=== PATIENT | female | born 1955 | race Caucasian/White ===

== ENCOUNTER 2025-02-09 09:29 | Outpatient (CLI) | payer MEDICARE, OTHER, SELFPAY ==
--- NOTE | 2025-02-09 10:59 | ECG_ITS ---
Test Date: 2025-02-09 11:19:46 Measurements Intervals [place] Rate: 60 P: -2 OH: 190 QRS: 3 QRSD: 89 T: 38 QT: 397 QTc: 400 Interpretive Statements SINUS RHYTHM MODERATE ST DEPRESSION [0.05+ mV ST DEPRESSION] WARNING: DATA QUALITY MAY AFFECT INTERPRETATION No previous ECG available for comparison Electronically Signed On 02-09-2025 11:28:34 CDT by Claude Clayton M.D.
[2025-02-09 12:29] LABS: Hematocrit 36.5 % (37.0-47.0); Hemoglobin 12.6 g/dL (12.0-15.0); Immature Granulocyte Percent A 0.3 % (0-0.5); Lymphocytes Absolute Auto 2.00 K/mm3 (0.9-3.2); Mean Corpuscular HGB Conc 34.5 g/dl (32-36); Mean Corpuscular Hemoglobin 30.1 pg (26-34); Mean Corpuscular Volume 87.1 fl (80-100); Nucleated Red Blood Cells Absolute Auto 0.000 K/mm3 (0.0-0.012); Nucleated Red Blood Cells Perc 0.0 % (0.0-0.2); Platelet Count Result 401 k/mm3 (150-375); Red Blood Count 4.19 M/mm3 (4.2-5.4); White Blood Count 6.4 K/mm3 (4.5-10.0)
[2025-02-09 12:46] LABS: Albumin Level 4.3 g/dL (3.5-5.1)
[2025-02-09 12:49] LABS: Anion Gap 7 mmol/L (4-12); Blood Urea Nitrogen 10 mg/dL (7-17); Calcium 9.2 mg/dL (8.4-10.2); Carbon Dioxide 25 mmol/L (22-30); Chloride 92 mmol/L (98-107); Estimated Glomerular Filt Rate > 60; Glucose 93 mg/dL (65-110); Hemoglobin A1C 5.9 % (<5.7); Potassium 4.1 mmol/L (3.4-5.0); Sodium 124 mmol/L (137-145)
[2025-02-09 13:42] LABS: MRSA (PCR) NOT DETECTED (NOT DETECTE)
== END 2025-02-09 09:30 | disposition home or self-care (01) ==
LOC: ANHSURGERY 09:37
PROVIDERS: Anesthesiology; Visit Provider Orthopaedic Surgery
DX: Z01.818 Encounter for other preprocedural examination (principal); M16.12 Unilateral primary osteoarthritis, left hip; Z51.81 Encounter for therapeutic drug level monitoring
CPT/HCPCS: 36415; 80048; 80307; 82040; 83036; 85025; 86850; 86900; 86901; 87641; 93005

== ENCOUNTER 2025-04-11 09:47 | Outpatient (CLI) | payer MEDICARE, OTHER, SELFPAY ==
--- OUTSIDE RECORDS SUMMARY | 2025-04-11 10:17 | XMS_ITS | Clinical Summary ---
Author Organization [facility] Address [address] [place] [id number] Care Team Providers Care Physical Director Name Role Phone Unavailable Primary Care Provider Unavailabl e Social History Tobacco Use Types Packs/Day Years Used Date Smoking Tobacco: Never Assessed Comments Unknown Sex and Gender Information Value Date Recorded Sex Assigned at Not on file Legal Sex Female 7:47 PM CDT Gender Identity Not on file Sexual Orientation Not on file Plan of Treatment Health Maintenance Due Date Last Done Comments Colorectal Cancer Screening Colonoscopy (10 Years) 1953 Hepatitis C 11/23/1971 DTaP, Tdap and Td Vaccines ( 1 - Tdap) 1972 Mammogram Screening 1993 Pneumococcal Vaccine: 50+ Ye ars (1 of 1 - PCV) 11/23/2003 Zoster Vaccines (1 of 2) 11/23/2003 Dexa Scan (General) 2018 COVID-19 Vaccine ( - 2024-2 6 season) 2025 Influenza Adult (#1) 2025 RSV Immunization or 60+ Years (1 - 1-dose 75+ series) 2028 Hepatitis A Vaccines Aged Out No long er eligible based on patient's age to complete this topic Meningococcal B Vaccine Aged Out No l onger eligible based on patient's age to complete this topic Meningococcal Vaccine Aged Out No violeta anahi eligible based on patient's age to complete this topic RSV Immunizations Under 20 Months Aged Out No longer eligible based on patient's age to complete this topic
[2025-04-11 10:29] LABS: Hematocrit 40.3 % (37.0-47.0); Hemoglobin 13.6 g/dL (12.0-15.0); Immature Granulocyte Percent A 0.0 % (0-0.5); Lymphocytes Absolute Auto 2.52 K/mm3 (0.9-3.2); Mean Corpuscular HGB Conc 33.7 g/dl (32-36); Mean Corpuscular Hemoglobin 30.3 pg (26-34); Mean Corpuscular Volume 89.8 fl (80-100); Nucleated Red Blood Cells Absolute Auto 0.000 K/mm3 (0.0-0.012); Nucleated Red Blood Cells Perc 0.0 % (0.0-0.2); Platelet Count Result 354 k/mm3 (150-375); Red Blood Count 4.49 M/mm3 (4.2-5.4); White Blood Count 6.6 K/mm3 (4.5-10.0)
[2025-04-11 10:38] LABS: Albumin Level 4.5 g/dL (3.5-5.1)
[2025-04-11 11:49] LABS: MRSA (PCR) NOT DETECTED (NOT DETECTE)
== END 2025-04-11 09:48 | disposition home or self-care (01) ==
LOC: ANHSURGERY 09:49
PROVIDERS: Visit Provider Orthopaedic Surgery
DX: M16.12 Unilateral primary osteoarthritis, left hip (principal); Z01.818 Encounter for other preprocedural examination
CPT/HCPCS: 80307; 82040; 85025; 86850; 86900; 86901; 87641

== ENCOUNTER 2025-04-24 02:04 | Day surgery (SDC) | payer MEDICARE, OTHER, SELFPAY ==
[2025-02-09 10:12] VITALS: BP 162/65; PULSE 58; RESP 16; TEMP 36.2; O2SAT 99; BMI 34.7
--- NOTE | 2025-02-09 10:32 | PC.NURSE ---
Report to the Outpatient Waiting Room, entrance under the green pavilion located off [facility], at time __6:00AM___ on date __02/20/25___. Planned Procedure Time: ___7:30AM___.? Time changes happen often and if your time is changed the preop area will call you the afternoon before. - You and your visitor will be asked to self-screen and do not enter if you have any COVID symptoms. Please call surgeon if you need to reschedule. - A mask is optional within the hospital at this time. Patients may have clear liquids (water, carbonated beverages, clear teas, apple juice) until 3 hours prior to surgery (4:30AM) with a maximum of 20 ounces. - No food from midnight until time of surgery and no smoking, or chewing tobacco (or any form of nicotine). No chewing gum, candy or mints. Take only the following medications with a SIP of water on the morning of surgery: LEVOTHYROXINE DO NOT STOP ANY OF YOUR OTHER PRESCRIPTION MEDICATIONS PRIOR TO SURGERY EXCEPT THE FOLLOWING Hold all vitamins and supplements for 3 days per anesthesiologist.- LAST DOSE 02/16/25 Medications to discontinue per physician ____HOLD IBUPROFEN & ASPIRIN 7 DAYS PRE-OP PER DR GONZALES____ Date to take last dose 02/12/25 Please no make-up, nail luxembourger, hairspray, perfume, deodorant, or body powder the day of surgery.? No jewelry (including any body piercings) or valuables the day of surgery, leave them at home.? Please take a shower or bath the night before, or the morning of, surgery with an antibacterial soap.? Wear comfortable, loose fitting clothing.? - Jewelry must be removed prior to entering the operating room.? Rings and piercings that are not removed may be cut off. - The hospital will not accept responsibility for valuables.? - Please leave all valuables, including medications, at home the day of surgery. If you are going home after surgery, a licensed mobile lounge driver must drive you home.? - NO public transportation without another adult if you receive anesthesia. - We recommend that an adult stay with you for 24 hours following discharge. - We also recommend that you do not drive, make important decision, drink alcoholic beverages, or take any drugs that were not prescribed by your health care provider for at least 24 hours after your discharge time. Follow any additional instructions given to you from your surgeon. Telephone instructions given to ____PATIENT & HUSBAND and asked if any additional questions and then verbalized understanding. Patient advised to call surgeon office or pre surgery nurse liaison [phone] if any additional questions.
--- NOTE | 2025-02-16 07:08 | PM.IMHP ---
H&P: HPI History of Present Illness Date/Time: 02/16/25 07:08 Chief Complaint: Patient has hip pain left. She has vmhz-hh-[id number] arthritis of the left hip. She has erosive wear of the bone. She has failed conservative treatment. She would like to consider hip replacement surgery. She has a total hip arthroplasty on the right. Review of Systems Musculoskeletal: Musculoskeletal: Reports arthralgias, Reports joint swelling and Reports stiffness Neurologic: Reports abnormal gait [facility] Past Medical History Medical History Retina disorder, right Hyperlipemia Hypertension Surgical History Surgical History History of hip surgery Family History Family History Father Diabetes mellitus Mother Goiter Diabetes mellitus Sibling No problems noted. Social History Social History (Updated 01/03/25 @ 10:02 by Gardenia Shanks [facility]) Smoking status: Never smoker Second hand tobacco smoke exposure: Yes Alcohol intake: current Substance use: never Substance use type: does not use Do You Feel Safe in your Home?: No Lack of Transportation: No Lack of Food: Never True Current Housing: I Have Housing Concerned About Future Housing: No Difficulty Paying Gas/Electric Bills: No Difficulty Paying for Meds: No Currently Unemployed: No Education: Associate Degree Difficulty w/ Childcare or Family Care: No Living arrangements: with family Additional living arrangements comments: [facility] Occupation/Education: 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 Gender identity (if verbalized by the patient): Female Spiritual care concerns: No Meds Home Medications and Allergies Home Medications ?Medication ?Instructions ?Recorded ?Confirmed ?Type atorvastatin 20 mg tablet 20 mg PO DAILY 12/31/23 02/09/25 History hydrochlorothiazide 12.5 mg capsule 12.5 mg PO DAILY 12/31/23 02/09/25 History levothyroxine 50 mcg capsule 50 mcg PO DAILY 12/31/23 02/09/25 History losartan 50 mg tablet 50 mg PO DAILY 12/31/23 02/09/25 History aspirin 81 mg tablet,delayed 81 mg PO DAILY 02/09/25 02/09/25 History release (Adult Low Dose Aspirin) biotin 5,000 mcg disintegrating 5,000 mcg PO DAILY 02/09/25 02/09/25 History tablet calcium 600 mg (as 1 tablet PO DAILY 02/09/25 02/09/25 History carbonate)-vitamin D3 5 mcg (200 unit) tablet coQ10 (ubiquinol) 200 mg capsule 200 mg PO DAILY 02/09/25 02/09/25 History cranberry 500 mg capsule 500 mg PO DAILY 02/09/25 02/09/25 History elderberry fruit 200 mg capsule 100 mg PO BID 02/09/25 02/09/25 History fish,flax,primrose,borag 1 cap PO DAILY 02/09/25 02/09/25 History oils-om3,6,9 no5 400 mg-400 mg-200 mg capsule flaxseed 1,000 mg capsule 1,000 mg PO DAILY 02/09/25 02/09/25 History ibuprofen 200 mg tablet 600 mg PO Q6-8H PRN pain 02/09/25 02/09/25 History multivitamin (Daily Multi-Vitamin 1 tablet PO DAILY 02/09/25 02/09/25 History tablet) mupirocin 2 % topical ointment 1 applic topical TID 02/09/25 02/09/25 History vit C-vit G-ggssmk-qwxlmgsf-omega 1 cap PO DAILY 02/09/25 02/09/25 History 3 100 mg-15 unit-2 mg-100 mg capsule Allergies Allergy/AdvReac Type Severity Reaction Status Date / Time sodium Allergy RASH, Verified 02/09/25 09:50 DIZZINESS sulfamethoxazole Allergy RASH Verified 02/09/25 09:56 Exam Narrative: On exam she has a pain with any manipulation of her left hip. She has internal rotation 0 external rotation about 20 she has a positive Stinchfield test and grinding with any motion. Neurologically she appears to be intact. Eyes: General: appearance normal, both eyes and all related structures Neck: Neck: supple Resp: Effort & Inspection: normal respiratory effort Cardio: Rate: regular rate Rhythm: regular rhythm Assessment and Plan Assessment and plan (1) Osteoarthritis of left hip: Code(s): M16.12 - Unilateral primary osteoarthritis, left hip Status: Acute Assessment and Plan: Patient has arthritis left hip. She has failed conservative treatment like to consider hip replacement surgery. She has a total hip arthroplasty on the right and has done well from that. I have discussed the risks, benefits, limitations, and alternatives with the patient in detail. Will proceed per her request. (2) History of right hip replacement: Code(s): Z96.641 - Presence of right artificial hip joint Status: Acute
[2025-04-10 11:10] VITALS: BMI 34.7
--- NOTE | 2025-04-10 11:49 | PC.NURSE ---
[facility] has started construction of its new state of the art ER which will open Spring 2026. With this, we anticipate parking may be a challenge for some our surgical patients and families. Parking spaces are limited but are available for all Surgical, obstetrics, and ER patients sharing this lot. If you arrive and find you are having a hard time finding a parking space, please note that we understand the challenges, please drive around the hospital and park near Hospital Entrance 1. When you enter this entrance, you can ask a volunteer to direct or take you back to the surgical waiting area to check in. We appreciate everyone?s understanding of these expected challenges while we build for your future. Report to the Outpatient Waiting Room, entrance under the green pavilion located off [address], at time __6:00AM____ on date __04/24/25___. Planned Procedure Time: ___7:30AM____.? Time changes happen often and if your time is changed the preop area will call you the afternoon before. - You and your visitor will be asked to self-screen and do not enter if you have any COVID symptoms. Please call surgeon if you need to reschedule. - A mask is optional within the hospital at this time. Patients may have clear liquids (water, carbonated beverages, clear teas, apple juice) until 3 hours prior to surgery(4:30AM) with a maximum of 20 ounces. - No food from midnight until time of surgery and no smoking, or chewing tobacco (or any form of nicotine). No chewing gum, candy or mints. Take only the following medications with a SIP of water on the morning of surgery: ___LEVOTHYROXINE DO NOT STOP ANY OF YOUR OTHER PRESCRIPTION MEDICATIONS PRIOR TO SURGERY EXCEPT THE FOLLOWING Hold all vitamins and supplements for 3 days per anesthesiologist. LAST DOSE 04/20/25 Medications to discontinue per physician ____HOLD IBUPROFEN (ALL NSAIDS) AND ASPIRIN 7 DAYS PRE-OP PER DR GONZALES__ Date to take last dose 04/16/25 Please no make-up, nail slovak, hairspray, perfume, deodorant, or body powder the day of surgery.? No jewelry (including any body piercings) or valuables the day of surgery, leave them at home.? Please take a shower or bath the night before, or the morning of, surgery with an antibacterial soap.? Wear comfortable, loose fitting clothing.? - Jewelry must be removed prior to entering the operating room.? Rings and piercings that are not removed may be cut off. - The hospital will not accept responsibility for valuables.? - Please leave all valuables, including medications, at home the day of surgery. If you are going home after surgery, a licensed tower truck driver must drive you home.? - NO public transportation without another adult if you receive anesthesia. - We recommend that an adult stay with you for 24 hours following discharge. - We also recommend that you do not drive, make important decision, drink alcoholic beverages, or take any drugs that were not prescribed by your health care provider for at least 24 hours after your discharge time. Follow any additional instructions given to you from your surgeon. Telephone instructions given to ____PATIENT and asked if any additional questions and then verbalized understanding. Patient advised to call surgeon office or pre surgery nurse liaison [phone] if any additional questions.
--- NOTE | 2025-04-20 06:59 | PM.IMHP ---
H&P: HPI History of Present Illness Date/Time: 04/20/25 06:59 Chief Complaint: Patient has hip pain left. She has qesj-in-egsu arthritis with erosive change. She has had a previous total hip arthroplasty on the right is done well from that. She would like to consider a hip replacement on the left as well. Review of Systems Musculoskeletal: Musculoskeletal: Reports arthralgias, Reports joint swelling and Reports stiffness Neurologic: Reports abnormal gait [facility] Past Medical History Medical History Retina disorder, right Hyperlipemia Hypertension Surgical History Surgical History History of hip surgery Family History Family History Father Diabetes mellitus Mother Goiter Diabetes mellitus Sibling No problems noted. Social History Social History (Updated 01/03/25 @ 10:02 by Gardenia Shanks [employer]) Smoking status: Never smoker Second hand tobacco smoke exposure: Yes Alcohol intake: current Substance use: never Substance use type: does not use Do You Feel Safe in your Home?: No Lack of Transportation: No Lack of Food: Never True Current Housing: I Have Housing Concerned About Future Housing: No Difficulty Paying Gas/Electric Bills: No Difficulty Paying for Meds: No Currently Unemployed: No Education: Associate Degree Difficulty w/ Childcare or Family Care: No Living arrangements: with family Additional living arrangements comments: [facility] Occupation/Education: retired 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 Gender identity (if verbalized by the patient): Female Spiritual care concerns: No Meds Home Medications and Allergies Home Medications ?Medication ?Instructions ?Recorded ?Confirmed ?Type atorvastatin 20 mg tablet 20 mg PO DAILY 12/31/23 02/09/25 History levothyroxine 50 mcg capsule 50 mcg PO DAILY 12/31/23 02/09/25 History aspirin 81 mg tablet,delayed 81 mg PO DAILY 02/09/25 02/09/25 History release (Adult Low Dose Aspirin) biotin 5,000 mcg disintegrating 5,000 mcg PO DAILY 02/09/25 02/09/25 History tablet calcium 600 mg (as 1 tablet PO DAILY 02/09/25 02/09/25 History carbonate)-vitamin D3 5 mcg (200 unit) tablet coQ10 (ubiquinol) 200 mg capsule 200 mg PO DAILY 02/09/25 02/09/25 History cranberry 500 mg capsule 500 mg PO DAILY 02/09/25 02/09/25 History elderberry fruit 200 mg capsule 400 mg PO DAILY 02/09/25 04/10/25 History fish,flax,primrose,borag 1 cap PO DAILY 02/09/25 02/09/25 History oils-om3,6,9 no5 400 mg-400 mg-200 mg capsule flaxseed 1,000 mg capsule 1,000 mg PO DAILY 02/09/25 02/09/25 History ibuprofen 200 mg tablet 600 mg PO Q6-8H PRN pain 02/09/25 02/09/25 History multivitamin (Daily Multi-Vitamin 1 tablet PO DAILY 02/09/25 02/09/25 History tablet) vit C-vit C-fihhfv-sxuqavhz-omega 1 cap PO DAILY 02/09/25 02/09/25 History 3 100 mg-15 unit-2 mg-100 mg capsule losartan 100 mg tablet 100 mg PO QAM 04/10/25 04/10/25 History Allergies Allergy/AdvReac Type Severity Reaction Status Date / Time sodium Allergy RASH, Verified 04/10/25 11:05 DIZZINESS sulfamethoxazole AdvReac nausea, Verified 04/10/25 11:06 loss of appetite, upset stomach Exam Narrative: On exam she has shortening of her left leg. His internal rotation is 0 external rotation about 30. She has grinding crepitus is audible. She has a positive Stinchfield test. She has pain with any manipulation. Eyes: General: appearance normal, both eyes and all related structures Neck: Neck: supple Resp: Effort & Inspection: normal respiratory effort Cardio: Rate: regular rate Rhythm: regular rhythm Assessment and Plan Assessment and plan (1) Osteoarthritis of left hip: Code(s): M16.12 - Unilateral primary osteoarthritis, left hip Status: Acute Assessment and Plan: Patient has ktof-wt-piyq arthritis of the left hip. She has failed conservative treatment like to proceed proceed with total hip arthroplasty. I discussed the risks, benefits, limitations, and alternatives with the patient in detail. She understands and agrees would like to proceed. Will proceed per her request. Of note is the fact she has a hip replacement on the right and is doing well from that.
[2025-04-24] VITALS (15 sets, daily range): BP systolic 110–215; BP diastolic 49–65; PULSE 72–98; RESP 12–20; TEMP 35.9–36.6; O2SAT 93–100
--- NOTE | ~2025-04-24 | XR_ITS ---
EXAMINATION: XR surgery orthopedic DATE: 04/24/2025 09:49 INDICATION: Intraoperative evaluation during left total hip arthroplasty TECHNIQUE: Frontal view of the left hip was obtained. COMPARISON: None. FINDINGS: Intraoperative image during a left total hip arthroplasty demonstrate placement of an acetabular component which appears in near anatomic alignment on the single image provided. A femoral broach is also been placed on the initial image. This is subsequently replaced with a noncemented femoral component which also appears in near-anatomic alignment with the epicenter of the femoral head centered over the acetabular component.. Portions of the pelvis are obscured by overlying surgical instrumentation. No fractures in the visualized bones. Partially visualized contralateral right total hip arthroplasty. IMPRESSION: 1. Expected appearance during left total hip arthroplasty. Reviewed, dictated and finalized at location A. CIL TYPIST
--- OUTSIDE RECORDS SUMMARY | 2025-04-24 02:07 | XMS_ITS | Continuity of Care Document ---
Author Organization [place] - [facility], [facility] [place] Address [address] [place] [address] Care Team Providers Care Branding Specialist Name Role Phone JOHNNIE VEGA Primary Care Provider [phone] JOHNNIE VEGA Referring Provider ANTONI OCASIO Commissary Clerk Unavailable ANTONI OCASIO Commissary Clerk Unavailable ANTONI OCASIO Commissary Clerk Unavailable Assessment No assessment recorded. Plan of Treatment Reminders Order Date Submit Date Provider Last Modified By Organization Details Last Modified Time Details Appointments Physical/ Annual Wellness 30 2025 10:00A M MANDO Hutchins Not available Not available Not available Lab None recorded. Referral None recorded. Procedures None recorded. Surgeries None recorded. Imaging None recorded. Medication Orders None recorded. Patient TargetsNo targets recorded. Patient InstructionsNo instructions recorded. Reason for Referral None Reported. Results Created Date Observation Date Name Description Value Unit Range Abnormal Flag Note LastModifiedBy Organization Detail LastModifiedTime Result Notes None recorded. Problems Name Problem SNOMED Code Status Onset Date Resolution Date Notes Provider Name and Address Organization Details Recorded Time Disorder of thyroid gland 42772802 Active Not Available [employer] 3 12:02:36 Hypertensi ve disorder 09018825 Active Not Available [facility] 3 12:02:36 Morbid obesity 480525690 Active 2017 Not Available [facility] 3 12:02:36 Hypothyroi dism 25410183 Active 2017 Not Available [facility] 3 12:02:36 Essential hypertensi on 47362981 Active 2017 Not Available [facility] 3 12:02:37 History of total hip arthroplas ty 939173356577 Active 2019 Not Available [facility] 3 12:02:37 Chronic hyponatrem ia 18374345 Active 2019 Not Available [facility] 3 12:02:37 Osteoarthr itis of left hip joint 0966395819299 08 Active 2021 Not Available [facility] 3 12:02:36 History of total replacemen t of right hip joint 6135913505575 00 Active 2021 Not Available [facility] 3 12:02:37 Hyperlipid emia 38291576 Active 2022 Not Available [facility] 3 12:02:37 Obesity 297832228 Active 2022 Not Available [facility] 3 12:02:36 Vitamin D deficiency 43263713 Active 2023 JAZIEL Rodriguez [address], [address], [place], [address] , [employer] 4 11:35:59 Open wound of lesser toe of right foot 9948015967384 9104 Active 2024 MANDO Hutchins [address], [address], [place], [address] , [employer] [facility] 5 11:36:50 Prediabete s 458830574 Active 2024 MANDO Hutchins [address], [address], [place], [address] , [employer] [facility] 5 11:41:03 Ulcer of toe of right foot Active 2024 Giorgio Pizano DPM [address], [address], [place], [address] , [employer] [facility] 5 09:49:22 Hammer toe 638447942 Active 2024 Giorgio Pizano DPM [address], [address], [place], [address] , [facility] [employer] [facility] [employer] 5 09:49:29 [facility] 17900844 Active 2024 MANDO Hutchins [address] [employer] [address], [address], [place], [address] , [facility] [employer] [facility] [employer] [facility] 14:19:43 Problem Notes None recorded. Procedures Surgical History Date Name Laterality Status Provider Name and Address Organization Details Recorded Time 5 Wound Care-Podiatry completed Delia Mast RN [employer] [facility] [employer] 02/08/2025 15:58:42 5 Wound Care-Podiatry completed Delia Mast RN [employer] [facility] 02/01/2025 15:11:14 5 Wound Care-Podiatry completed Giorgio Pizano DPM [address], [place], [address], [facility] [employer] [facility] 01/26/2025 09:48:39 4 Medicare Wellness CPT Code, subsequent completed August ROBBIE Marley [employer] [facility] 01/21/2024 10:47:15 3 Medicare Wellness CPT Code, subsequent completed SPRING Ramirez [address], [address], [place], [address], [facility] [employer] [facility] 12/09/2022 09:56:46 3 Medicare Wellness CPT Code, Initial completed Eula Ann CMA [employer] [facility] 12/09/2022 09:23:14 0 Hip surgery completed Not Available [facility] 07/31/19 09:25:53 Imaging Results None recorded. Procedure Notes None recorded. Medical Equipment None Reported. Allergies Allergen ID Allergen Name Allergen Category Reaction Reaction Severity Criticality Documentation Date Start Date Code Code System Note Provider Name and Address Organization Details Recorded Time 16892 sodium chloride medicatio n Not available Not available low 01/25/2025 9863 RxNorm MANDO Hutchins [address], [address], [place], [address], [facility] 5 15:16:05 11916 Bactrim medicatio n hives Not available low 02/01/2025 44495 9 RxNorm Johnnie Gutierrezopal, HVAC SERVICE TECH [address], [address], [place], [address], [facility] 5 09:15:00 Medications Name Sig Start Date Stop Date Status Note LastModified by Organization Details LastModified Time losartan 50 mg tablet TAKE 1 TABLET BY MOUTH EVERY DAY active Not Available Not Available No t Available amoxicilli n 500 mg capsule TAKE 4 CAPSULES BY MOUTH 1 HOUR PRIOR TO PROCEDURE 10/21 completed Not Available Not Available Not Available atorvastat in 20 mg tablet TAKE 1 TABLET BY MOUTH EVERY DAY 2024 active Not Available Not Available Not Avai lable benzonatat e 200 mg capsule Take 1 capsule 3 times a day by oral route for 10 days. active Not Available Not Available No t Available hydrochlor othiazide 50 mg tablet TAKE 1 TABLET BY MOUTH EVERY DAY 01/23 completed Not Available Not Available Not Available sodium chloride 1 gram tablet TAKE 1 TABLET BY MOUTH DAILY FOR 10 DAYS 12/31 completed Not Available Not Available Not Available sulfametho xazole 800 mg-trimeth oprim 160 mg tablet TAKE 1 TABLET BY MOUTH TWICE A DAY DIRECTED FOR 7 DAYS 02/01 completed rash Not Available Not Available Not Available amoxicilli n 500 mg tablet 01/20 completed Not Available Not Available Not Available levothyrox ine 25 mcg tablet Take 1 tablet every day by oral route for 90 days. 07/05 completed Not Available Not Available Not Available garlic 1,000 mg capsule Take by oral route. 07/05 completed Not Available Not Available Not Available terbinafin e HCl 250 mg tablet Take 1 tablet every day by oral route. 2018 active Not Available Not Available Not Avai lable prednisolo ne acetate 1 % eye drops,susp ension PUT 1 DROP IN RIGHT EYE 4 TIMES A DAY 01/20 completed Not Available Not Available Not Available levothyrox ine 50 mcg tablet TAKE 1 TABLET BY MOUTH EVERY DAY 2024 active Not Available Not Available Not Avai lable hydrocodon e 7.5 mg-acetami nophen 325 mg tablet 12/25 completed Not Available Not Available Not Available hydrochlor othiazide 12.5 mg capsule TAKE 1 CAPSULE BY MOUTH ONCE DAILY 01/20 completed Not Available Not Available Not Available mupirocin 2 % topical ointment APPLY A SMALL AMOUNT TO AFFECTED AREA 3 TIMES A DAY active Not Available Not Available No t Available ibuprofen 600 mg tablet TAKE 1 TABLET BY MOUTH THREE TIMES DAILY NEEDED 12/25 completed Not Available Not Available Not Available methylpred nisolone 4 mg tablets in a dose pack 09/11 completed Not Available Not Available Not Available losartan 50 mg-hydroch lorothiazi de 12.5 mg tablet Take 1 tablet every day by oral route for 90 days. 12/31 completed Not Available Not Available Not Available losartan 100 mg tablet TAKE 1 TABLET BY MOUTH EVERY DAY DIRECTED active Not Available Not Available No t Available Calcium and Eggshell Chelated 500 mg tablet Take by oral route. 07/05 completed Not Available Not Available Not Available cyclobenza compa 5 mg tablet TAKE 1 TABLET BY MOUTH THREE TIMES A DAY NEEDED 12/25 completed Not Available Not Available Not Available moxifloxac in 0.5 % eye drops PUT 1 DROP IN RIGHT EYE 4 TIMES A DAY 01/25 completed Not Available Not Available Not Available metoprolol tartrate 25 mg tablet 01/23 completed Not Available Not Available Not Available aspirin 07/05 completed Not Available Not Available Not Available Fish Oil 07/05 completed Not Available Not Available Not Available biotin 07/05 completed Not Available Not Available Not Available flaxseed 07/05 completed Not Available Not Available Not Available Calcium 500 07/05 completed Not Available Not Available Not Available Complete Multivitam in 2019 active Not Available Not Available Not Avai lable sodium chloride 1,000 mg soluble tablet Take 1 tablet every day by miscell. route for 90 days. 01/25 completed Not Available Not Available Not Available hydrochlor othiazide 12.5 mg tablet TAKE 1 TABLET BY MOUTH EVERY DAY active Not Available Not Available No t Available CoQ-10 07/05 completed Not Available Not Available Not Available [place] 3-6-9 2019 active kady red omega Not Available Not Available Not Available Xarelto 10 mg tablet 12/25 completed Not Available Not Available Not Available Macular Vitamin 2019 active Not Available Not Available Not Avai lable Multi Vitamin 07/05 completed Not Available Not Available Not Available [facility] 12/31 completed Not Available Not Available Not Available Flucelvax Quad (PF) 60 mcg (15 mcg x 4)/0.5 mL IM syringe TO BE ADMINISTE RED BY PHARMACIS T FOR IMMUNIZAT ION 06/30 completed Not Available Not Available Not Available Fluzone High-Dose 2018- (PF) 180 mcg/0.5 mL intramuscu lar syringe TO BE ADMINISTE RED BY PHARMACIS T FOR IMMUNIZAT ION 12/31 completed Not Available Not Available Not Available Vitals None Recorded Social History Question Answer Notes LastModified by Organization Details LastModified Time Tobacco Smoking Status Never Smoker Not Available [facility] 07/30/2022 09:25:48 Do You Have An Advance Directive? No Information not available 01/20/2025 Are You Blind Or Do You Have Difficulty Seeing? No [email or web address] Information not available 01/20/2025 Is Blood Transfusion Acceptable In An Emergency? Yes [email or web address] Information not available 01/20/2025 What Is Your Level Of Caffeine Consumption? Occasional 1 Glass Of Tea/day Diet Dr. Butler 1x/week 1 Cup Coffee 2x/week [email or web address] Information not available 01/20/2025 What Is Your Code Status? Full Code [email or web address] Information not available 01/20/2025 In The 14 Days Before Symptom Onset, Have You Had Close Contact With A Laboratory-conf irmed COVID-19 While That Case Was Ill? No [email or web address] Information not available 01/20/2025 In The 14 Days Before Symptom Onset, Have You Had Close Contact With A Person Who Is Under Investigation For COVID-19 While That Person Was Ill? No [email or web address] Information not available 01/20/2025 Are You Deaf Or Do You Have Serious Difficulty Hearing? No [email or web address] Information not available 01/20/2025 What Type Of Diet Are You Following? REGULAR [email or web address] Information not available 01/20/2025 What Is The Highest Grade Or Level Of School You Have Completed Or The Highest Degree You Have Received? [id number] Information not available 01/20/2025 Have There Been Any Changes To Your Family Or Social Situation? No Information not available 01/20/2025 What Is The Fluoride Status Of Your Home? Fluoridated [email or web address] Information not available 01/20/2025 Are There Any Guns Present In Your Home? Yes [email or web address] Information not available 01/20/2025 Do You Use Insect Repellent Routinely? No [email or web address] Information not available 01/20/2025 Where Do You Live? SingleLevelHouse [email or web address] Information not available 01/20/2025 Advance Directive- Providers Has Reviewed Directive And Consents To Follow Them (insert Provider Name With Any Objectives In Notes Field) No [email or web address] Information not available 01/20/2025 Presence Of Domestic Violence No [email or web address] Information not available 01/20/2025 Guns Present In The Home? Yes [email or web address] Information not available 01/20/2025 Are You Able To Care For Yourself? Yes [email or web address] Information not available 01/20/2025 Are You Blind Or Do Yo Have Difficulty Seeing? No [email or web address] Information not available 01/20/2025 Are You Deaf Or Do You Have Serious Difficulty Hearing? No Information not available 01/20/2025 General Stress Level? Low [email or web address] Information not available 01/20/2025 Live Alone Of With Others? With Others [email or web address] Information not available 01/20/2025 Do You Have A Medical Power Of Cabinet Mounter? No [email or web address] Information not available 01/20/2025 How Many Children Do You Have? 0 [email or web address] Information not available 01/20/2025 Do You Have Any Pets? No [email or web address] Information not available 01/20/2025 What Is Your Relationship Status? [email or web address] Information not available 01/20/2025 Do You Have Smoke And Carbon Monoxide Detectors In Your Home? Yes Information not available 01/20/2025 Are You Passively Exposed To Smoke? No [email or web address] Information not available 01/20/2025 Are There Any Smokers In Your House? No [email or web address] Information not available 01/20/2025 What Types Of Sporting Activities Do You Participate In? Walking [email or web address] Information not available 01/20/2025 Do You Use Sunscreen Routinely? Yes [email or web address] Information not available 01/20/2025 Has Tobacco Cessation Counseling Been Provided? No [email or web address] Information not available 01/20/2025 Have You Recently Traveled Abroad? No [email or web address] Information not available 01/20/2025 Do You Have Difficulty Walking Or Climbing Stairs? Yes Having Hip Replacement On 02/20/25 [email or web address] Information not available 01/20/2025 Are You Currently In School? No Information not available 01/20/2025 Do You Have Any Dietary Restrictions? No Information not available 01/20/2025 Sex: Female Functional Status Question Answer Note LastModified by [employer] Details LastModified Time Do you use any illicit or recreational drugs? No [email or web address] Information not available 01/20/2025 Do you or have you ever used any other forms of tobacco or nicotine? No [email or web address] Information not available 01/20/2025 What is your level of alcohol consumption? None [id number] Information not available 07/30/2022 Are you currently employed? No Retired Information not available 01/20/2025 Do you have transportation difficulties? No [email or web address] Information not available 01/20/2025 Are you able to walk independently without assistance or assistive devices? [employer]OREST [email or web address] Information not available 01/20/2025 Do you have difficulty doing errands alone? No Information not available 01/20/2025 Are you able to care for yourself independently? Yes [email or web address] Information not available 01/20/2025 Do you have difficulty dressing, bathing, grooming, or toileting? No [email or web address] Information not available 01/20/2025 Mental Status Question Answer Note LastModified by [employer] Details LastModified Time Do you feel stressed (tense, restless, nervous, or anxious, or unable to sleep at night)? [id number] Information not available 10/21/2022 Do you have difficulty concentrating, remembering or making decisions? No [email or web address] Information no t available 01/20/2025 Family History Relationship Description Onset Age of this Age Resolved Age Notes LastModified by Organization Details LastModified Time Father Heart disease [id number] Not available 07/30/2022 09:25:53 Father Hypertensive disorder [id number] [id number] Not available 07/30/2022 09:25:53 Father Diabetes mellitus [email or web address] [id number] Not available 07/30/2022 09:25:53 Mother Heart disease [email or web address].756 [id number] Not available 07/30/2022 09:25:54 Mother Hypertensive disorder [id number] [id number] Not available 07/30/2022 09:25:54 Mother Diabetes mellitus [id number].192 [id number] Not available 07/30/2022 09:25:54 Medical History Condition Response ARTHRITIS Y USE OF NSAIDS Y THYROID DISEASE Y HYPERTENSION Y Gynecological HistoryNo gynecological history recorded. Obstetrics History GPAL:G 0 P 0 0 0 0 Immunizations Vaccine Type Date Status Note Provider Nam e and Address Organization Details Recorded Time influenza, unspecified formulation 3 completed ROSA [place], [place] [employer] [facility] 04/01/2023 08:36:18 Influenza, MDCK, quadrivalent, PF 8 completed MANDO Hutchins [address] [facility] [address], [place], [address], [employer] [facility] 01/20/2025 11:26:35 Influenza, MDCK, quadrivalent, PF 7 completed MANDO Hutchins [address], [place], [address], [employer] 01/20/2025 11:26:35 Influenza, adjuvanted, quadrivalent, PF 0 completed MANDO Hutchins [address] [facility], [address], [place], [address], [employer] 01/20/2025 11:26:35 Influenza, adjuvanted, quadrivalent, PF 1 completed MANDO Hutchins [address], [place], [address], [facility] 01/20/2025 11:26:35 Influenza, high-dose, trivalent, PF 9 completed MANDO Hutchins [address], [place], [address], [facility] 01/20/2025 11:26:35 Influenza, split virus, trivalent, PF 5 completed MANDO Hutchins [address], [place], [address], [facility] 01/20/2025 11:26:35 Influenza, split virus, quadrivalent, PF [address], [place], [address], [facility] [employer] [facility] 01/20/2025 11:26:35 Influenza, MDCK, quadrivalent, PF 8 completed MANDO Hutchins [address], [place], [address], [facility] 01/20/2025 11:26:35 Influenza, adjuvanted, quadrivalent, PF 2 completed MANDO Hutchins [address], [place], [address], [facility] 01/20/2025 11:26:35 Influenza, split virus, quadrivalent, preservative 0 completed MANDO Hutchins [address], [place], [address], [facility] 01/20/2025 11:26:35 Influenza, split virus, quadrivalent, preservative 9 completed MANDO Hutchins [address], [place], [address], [facility] [employer] [facility] 01/20/2025 11:26:35 Influenza, injectable,quadriva lent, preservative free, pediatric 7 completed MANDO Hutchins [address], [place], [address], [facility] [employer] [facility] 01/20/2025 11:26:35 pneumococcal polysaccharide PPV23 0 completed Not Available [facility] 07/30/2022 09:31:49 Tdap 9 completed Not Available [facility] 07/30/2022 09:31:49 Pneumococcal conjugate PCV 13 9 completed Not Available [facility] 07/30/2022 09:31:49 Past Encounters Encounter ID Performer Location Encounter Start Date Encounter Closed Date Diagnosis/Indication Diagnosis SNOMED-CT Code Diagnosis ICD10 Code Diagnosis IMO Codes Diagnosis Note [id number] Virgilio Jansen MD [facility] [address] [address] 03/20/2025 14:56:06 03/22/2025 03:59:04 Health Concerns Section Related Observation LastModified by Organization Detai ls LastModified Time None Recorded Concern Status LastModified by Organization Details LastModified Time None Recorded Payers Encounter Date Sequence Insurance Name Policy Number Policy Lam Covered Member ID Lam Member ID Guarantor Name 03/20/2025 1 [place] Margaret Santos [id number] Margaret Santos 03/20/2025 2 [facility] (MEDICARE SUPPLEMENT) Margaret Santos [id number] Margaret Santos OBGyn Episode No OBEpisode recorded.
--- OUTSIDE RECORDS SUMMARY | 2025-04-24 02:07 | XMS_ITS | Continuity of Care Document ---
Author Organization [place] - [facility] [employer], [facility] Address [address] [place] [address] Care Team Providers Care Regional Planner Name Role Phone JOHNNIE VEGA Primary Care Provider [phone] JOHNNIE VEGA Referring Provider ANTONI OCASIO Child Development Director Unavailable ANTONI OCASIO Child Development Director Unavailable ANTONI OCASIO Child Development Director Unavailable Assessment Encounter Date Assessment Date Assessment LastModified by Organization Details LastModified Time 02/01/2025 02/01/2025 This note is dictated and transcribed by [employer]. Kitchen Steward variances may occur. Despite proofreading, typographical errors may occur. Occasional wrong-word or 'yyaly-h-elua' substitutions may have occurred due to the inherent limitations of voice recording. Read the chart carefully and recognize, using context, where substitutions have occurred. [email or web address] Not available 02/01/2025 15:32:31 Plan of Treatment Reminders Order Date Submit Date Provider Last Modified By Organization Details Last Modified Time Details Appointments Physical/ Annual Wellness 30 2025 10:00A MANDO Flores Not available Not available Not available Lab [...] Details Recorded Time Disorder of thyroid gland 31355580 Active Not Available [facility] 3 12:02:36 Hypertensi ve disorder 38385525 Active Not Available [facility] 3 12:02:36 Morbid obesity 336106309 Active 2017 Not Available [facility] 3 12:02:36 Hypothyroi dism 29270006 Active 2017 Not Available [facility] 3 12:02:36 Essential hypertensi on 12086822 Active 2017 Not Available [facility] 3 12:02:37 History of total hip arthroplas ty 822648669598 Active 2019 Not Available [facility] 3 12:02:37 Chronic hyponatrem ia 72807314 Active 2019 Not Available [facility] 3 12:02:37 Osteoarthr itis of left hip joint 1705665420873 08 Active 2021 Not Available [facility] 3 12:02:36 History of total replacemen t of right hip joint 8543578685570 00 Active 2021 Not Available [facility] 3 12:02:37 Hyperlipid emia 91666497 Active 2022 Not Available [facility] 3 12:02:37 Obesity 047123473 Active 2022 Not Available [facility] 3 12:02:36 Vitamin D deficiency 16155057 Active 2023 JAZIEL Rodriguez [address], [place], [address] , [employer] [facility] [employer] 4 11:35:59 Open wound of lesser toe of right foot 8973193288921 9104 Active 2024 MANDO Hutchins [address], [place], [address] , [employer] [facility] [employer] 5 11:36:50 Prediabete s 262273039 Active 2024 MANDO Hutchins [address], [place], [address] , [employer] [facility] [employer] 5 11:41:03 Ulcer of toe of right foot Active 2024 Giorgio Pizano DPM [address], [place], [address] , [facility] [employer] [facility] [employer] 5 09:49:22 Hammer toe 479946133 Active 2024 Giorgio Pizano DPM [address], [place], [address] , [facility] [employer] [facility] [employer] 5 09:49:29 Hyponatrem ia 67308596 Active 2024 MANDO Hutchins [address], [place], [address] , [facility] [employer] [facility] [employer] 5 14:19:43 Problem Notes None recorded. Procedures Surgical History Date Name Laterality Status Provider Name and Address Organization Details Recorded Time 5 Wound Care-Podiatry completed Delia Mast RN [facility] 02/08/2025 15:58:42 5 Wound Care-Podiatry completed Delia Mast RN [facility] 02/01/2025 15:11:14 5 Wound Care-Podiatry completed Giorgio Pizano DPM [address], [place], [address], [employer] 01/26/2025 09:48:39 4 Medicare Wellness CPT Code, subsequent completed Anabel Marley RN [facility] 01/21/2024 10:47:15 3 Medicare Wellness CPT Code, subsequent completed SPRING Ramirez [address], [place], [address], [facility] [employer] [facility] [employer] 12/09/2022 09:56:46 3 Medicare Wellness CPT Code, Initial completed Eula Ann CMA [facility] 12/09/2022 09:23:14 0 Hip surgery completed Not Available [facility] 07/31/19 09:25:53 Imaging Results None recorded. Procedure Notes None recorded. Medical Equipment None Reported. Allergies Allergen ID Allergen Name Allergen Category Reaction Reaction Severity Criticality Documentation Date Start Date Code Code System Note Provider Name and Address Organization Details Recorded Time 06619 sodium chloride medicatio n Not available Not available low 01/25/2025 9863 RxNorm Johnnie Thilker, [employer] [address], [address], [place], [address], [facility] 5 15:16:05 48683 Bactrim medicatio n hives Not available low 02/01/2025 09015 9 RxNorm Singers Glenleslie Guiterrezlker, [employer] MACHINE OPERATOR [address], [place], [address], [facility] 5 09:15:00 Medications Name Sig Start Date [...] Not Available Not Available Not Available cyclobenza comap 5 mg tablet TAKE 1 TABLET BY [...] completed Not Available Not Available Not Available [facility] 3-6-9 2019 active kady red omega Not [...] Available Not Available Not Available Fluzone High-Dose (PF) 180 mcg/0.5 mL intramuscu lar syringe TO BE ADMINISTE RED BY PHARMACIS T FOR IMMUNIZAT ION 12/31 completed Not Available Not Available Not Available Vitals Date Recorded Body height Heart rate Body temperature Oxygen saturation Respiratory rate Systolic And Diastolic Provider Name and Address Organization Details Last Updated DateTime 5 160.02 cm 96 /min 98.4 [degF] 72 % 18 /min 192/74 mm[Hg] Delia Mast RN [place] [facility] 5 15:09:07 Social History Question Answer Notes LastModified by Organization Details LastModified Time Tobacco Smoking Status Never Smoker Not Available [facility] 07/30/2022 09:25:48 Do You Have An Advance Directive? No [email or web address] Information not available 01/20/2025 Are You Blind Or Do You Have Difficulty Seeing? No [email or web address] Information not available 01/20/2025 Is Blood Transfusion Acceptable In An Emergency? Yes Information not available 01/20/2025 What Is Your Level Of Caffeine Consumption? Occasional 1 Glass Of Tea/day Diet Dr. Butler 1x/week 1 Cup Coffee 2x/week [email or web address] Information not available 01/20/2025 What Is Your Code Status? Full Code [email or web address] Information not available 01/20/2025 In The 14 Days Before Symptom Onset, Have You Had Close Contact With A Laboratory-conf irmed COVID-19 While That Case Was Ill? No [email or web address] Information not available 01/20/2025 In The 14 Days Before Symptom Onset, Have You Had Close Contact With A Person Who Is Under Investigation For COVID-19 While That Person Was Ill? No [email or web address] Information not available 01/20/2025 Are You Deaf Or Do You Have Serious Difficulty Hearing? No Information not available 01/20/2025 What Type Of Diet Are You Following? REGULAR [email or web address] Information not available 01/20/2025 What Is The Highest Grade Or Level Of School You Have Completed Or The Highest Degree You Have Received? DE41308-9 [email or web address] Information not available 01/20/2025 Have There Been Any Changes To Your Family Or Social Situation? No [email or web address] Information not available 01/20/2025 What Is The Fluoride Status Of Your Home? Fluoridated Information not available 01/20/2025 Are There Any Guns Present In Your Home? Yes [email or web address] Information not available 01/20/2025 Do You Use Insect Repellent Routinely? No Information not available 01/20/2025 Where Do You Live? SingleLevelHouse Information not available 01/20/2025 Advance Directive- Providers Has Reviewed Directive And Consents To Follow Them (insert Provider Name With Any Objectives In Notes Field) No [email or web address] Information not available 01/20/2025 Presence Of Domestic Violence No [email or web address] Information not available 01/20/2025 Guns Present In The Home? Yes [email or web address] Information not available 01/20/2025 Are You Able To Care For Yourself? Yes [email or web address] Information not available 01/20/2025 Are You Blind Or Do Yo Have Difficulty Seeing? No Information not available 01/20/2025 Are You Deaf Or Do You Have Serious Difficulty Hearing? No [email or web address] Information not available 01/20/2025 General Stress Level? Low [email or web address] Information not available 01/20/2025 Live Alone Of With Others? With Others [email or web address] Information not available 01/20/2025 Do You Have A Medical Power Of Clip On Sunglasses Assembler? No [email or web address] Information not available 01/20/2025 How Many Children Do You Have? 0 [email or web address] Information not available 01/20/2025 Do You Have Any Pets? No Information not available 01/20/2025 What Is Your Relationship Status? [email or web address] Information not available 01/20/2025 Do You Have Smoke And Carbon Monoxide Detectors In Your Home? Yes Information not available 01/20/2025 Are You Passively Exposed To Smoke? No [email or web address] Information not available 01/20/2025 Are There Any Smokers In Your House? No [email or web address] Information not available 01/20/2025 What Types Of Sporting Activities Do You Participate In? Walking [email or web address] Information not available 01/20/2025 Do You Use Sunscreen Routinely? Yes [email or web address] Information not available 01/20/2025 Has Tobacco Cessation Counseling Been Provided? No [email or web address] Information not available 01/20/2025 Have You Recently Traveled Abroad? No [email or web address] Information not available 01/20/2025 Do You Have Difficulty Walking Or Climbing Stairs? Yes Having Hip Replacement On 02/20/25 Information not available 01/20/2025 Are You Currently In School? No [email or web address] Information not available 01/20/2025 Do You Have Any Dietary Restrictions? No [email or web address] Information not available 01/20/2025 Sex: Female Functional Status Question Answer Note LastModified by Organizat ion Details LastModified Time Do you use any illicit or recreational drugs? No [email or web address] Information not available 01/20/2025 Do you or have you ever used any other forms of tobacco or nicotine? No [email or web address] Information not available 01/20/2025 What is your level of alcohol consumption? None [id number] Information not available 07/30/2022 Are you currently employed? No Retired [email or web address] Information not available 01/20/2025 Do you have transportation difficulties? No [email or web address] Information not available 01/20/2025 Are you able to walk independently without assistance or assistive devices? [email or web address] Information not available 01/20/2025 Do you have difficulty doing errands alone? No [email or web address] Information not available 01/20/2025 Are you able to care for yourself independently? Yes [email or web address] Information not available 01/20/2025 Do you have difficulty dressing, bathing, grooming, or toileting? No [email or web address] Information not available 01/20/2025 Mental Status Question Answer Note LastModified by Organizat ion Details LastModified Time Do you feel stressed (tense, restless, nervous, or anxious, or unable to sleep at night)? [id number] Information not available 10/21/2022 Do you have difficulty concentrating, remembering or making decisions? No [email or web address] Information no t available 01/20/2025 Family History Relationship Description Onset Age of this Age Resolved Age Notes LastModified by Organization Details LastModified Time Father Heart disease [id number].707 [id number] Not available 07/30/2022 09:25:53 Father Hypertensive disorder MIGRATION.152 [id number] Not available 07/30/2022 09:25:53 Father Diabetes mellitus MIGRATION.131 [id number] Not available 07/30/2022 09:25:53 Mother Heart disease MIGRATION.571 [id number] Not available 07/30/2022 09:25:54 Mother Hypertensive disorder MIGRATION.747 [id number] Not available 07/30/2022 09:25:54 Mother Diabetes mellitus MIGRATION.558 [id number] Not available 07/30/2022 09:25:54 Medical History Condition Response THYROID DISEASE Y ARTHRITIS Y USE OF NSAIDS Y HYPERTENSION Y Gynecological HistoryNo gynecological history recorded. Obstetrics History GPAL:G 0 P 0 0 0 0 Immunizations Vaccine Type Date Status Note Provider Nam e and Address Organization Details Recorded Time influenza, unspecified formulation completed Catia Dodson LPN null, [place] [facility] 04/01/2023 08:36:18 Influenza, MDCK, quadrivalent, PF 8 completed MANDO Hutchins [address], [place], [address], [employer] [facility] [employer] [facility] 01/20/2025 11:26:35 Influenza, MDCK, quadrivalent, PF 7 completed MANDO Hutchins [address], [place], [address], [employer] [facility] [employer] [facility] 01/20/2025 11:26:35 Influenza, adjuvanted, quadrivalent, PF 0 completed MANDO Hutchins [address], [place], [address], [employer] [facility] [employer] [facility] 01/20/2025 11:26:35 Influenza, adjuvanted, quadrivalent, PF 1 completed MANDO Hutchins [address], [place], [address], [employer] [facility] 01/20/2025 11:26:35 Influenza, high-dose, trivalent, PF 9 completed MANDO Hutchins [address], [place], [address], [employer] [facility] [employer] [facility] 01/20/2025 11:26:35 Influenza, split virus, trivalent, PF 5 completed MANDO Hutchins [address], [place], [address], [employer] [facility] [employer] [facility] 01/20/2025 11:26:35 Influenza, split virus, quadrivalent, PF 6 completed MANDO Hutchins [address], [place], [address], [employer] [facility] [employer] [facility] 01/20/2025 11:26:35 Influenza, MDCK, quadrivalent, PF 8 completed MANDO Hutchins [address], [place], [address], [employer] [facility] [employer] [facility] 01/20/2025 11:26:35 Influenza, adjuvanted, quadrivalent, PF 2 completed MANDO Hutchins [address], [place], [address], [employer] [employer] [facility] 01/20/2025 11:26:35 Influenza, split virus, quadrivalent, preservative 0 completed MANDO Hutchins [employer] [address], [place], [address], [employer] [employer] [facility] 01/20/2025 11:26:35 Influenza, split virus, quadrivalent, preservative 9 completed MANDO Hutchins [address], [place], [address], [employer] [facility] [employer] [facility] 01/20/2025 11:26:35 Influenza, injectable,quadriva lent, preservative free, pediatric 7 completed MANDO Hutchins [address], [place], [address], [employer] [facility] [employer] [facility] 01/20/2025 11:26:35 pneumococcal polysaccharide PPV23 0 completed Not Available [facility] 07/30/2022 09:31:49 Tdap 9 completed Not Available [facility] 07/30/2022 09:31:49 Pneumococcal conjugate PCV 13 9 completed Not Available [facility] 07/30/2022 09:31:49 Past Encounters Encounter ID Performer Location Encounter Start Date Encounter Closed Date Diagnosis/Indication Diagnosis SNOMED-CT Code Diagnosis ICD10 Code Diagnosis IMO Codes Diagnosis Note [id number] Virgilio Jansen MD [facility] [address] [address] 01/20/2025 10:44:45 01/20/2025 12:17:55 Hypothyroidism 51039022 E03.9 Well controlled , has been on the same dose for many years Chronic hyponatremia 503 99484 E87.1 Taking daily sodium chloride Osteoarthr itis of left hip joint 2419390792 82091 M16.12 scheduled for replacemen t 02/20/25 Hyperlipidemia 70778762 E78.5 Will check labs. Managed with atorvastat in and omega 3 Essential hypertension 52330228 I10 Elevated today, admits to white coat syndromeWi ll start monitoring at home Screening mammography 24 252580 Z12.31 64641380 Open wound of lesser toe of right foot 4252625127 3779077 S91.104A 21612826 Blister that rupture, third toe is red, warm, swollen Prediabetes 753993409 R7 3.03 376973 Last A1C 6.1 [id number] Giorgio Pizano DPM [facility] [address] [place] [address] 01/25/2025 11:04:40 01/26/2025 10:18:53 Prediabetes 988984190 R73.03 245371 continue diabetic control per PCP recommenda tions Ulcer of t oe of right foot 7778997446 6021465 L97.512 99004290 right 3rd toemupiroc in wet-to-dry dressings, daily y0tbhkhyce ng at all timesfollo w-up one-week Hammer toe 668966777 M20 .41 07488170 discuss treatment optionsDis pensed toe crest padrecomme nd supportive shoe gear [id number] Giorgio Pizano DPM [facility] [address] [place] [address] 02/01/2025 14:59:42 02/01/2025 17:27:13 Prediabetes 413756634 R73.03 668103 continue diabetic control per PCP recommenda tions Ulcer of t oe of right foot 4088005228 5537483 L97.512 94065241 right 3rd toefinish Bactrim-- developed rashmupiro kannan wet-to-dry dressings, daily h6sxxdiaeo ng at all timesfollo w-up one-week Hammer toe 583180163 M20 .41 46507886 discuss treatment optionsDis pensed toe crest pad-- Continue toe crest padsrecomm end supportive shoe gear Health Concerns Section Related Observation LastModified by Organization Detai ls LastModified Time None Recorded Concern Status LastModified by Organization Details LastModified Time None Recorded Payers Encounter Date Sequence Insurance Name Policy Number Policy Lam Covered Member ID Lam Member ID Guarantor Name 02/01/2025 1 [place] Margaret Regan Tom [id number] Margaret Santos 02/01/2025 2 [facility] (MEDICARE SUPPLEMENT) Margaret Santos [id number] Margaret Santos Notes Date Note Type Note Provider Name and Address Organization Details Recorded Time 02/01/2025 text/html ROS as noted in the HPI . Patient is a 69-year-old female she returns for follow-up on wounds secondary to hammertoe. Patient is doing well she states she did develop a rash about a day before she finished her antibiotics. Patient was on oral Bactrim. Patient states the rash is since resolved. Patient denies any other complaints. Giorgio Pizano DPM [address] [facility] [address], [place], [address], [place] [facility] 02/01/2025 15:33:12 OBGyn Episode No OBEpisode recorded.
--- OUTSIDE RECORDS SUMMARY | 2025-04-24 02:07 | XMS_ITS | Data Portability ---
Author Organization [facility], Main Office Address [address] [place] [address] Care Team Providers Care Lead Web Developer Name Role Phone JOHNNIE VEGA Primary Care Provider [phone] JOHNNIE VEGA Referring Provider [phone] ANTONI OCASIO Librarian Unavailable ANTONI OCASIO Librarian Unavailable ANTONI OCASIO Librarian Unavailable Assessment Encounter Date Assessment Date Assessment LastModified by Organization Details LastModified Time 01/25/2025 01/25/2025 This note is dictated and transcribed by [employer]. [employer] Set Up Operator variances may occur. Despite proofreading, typographical errors may occur. Occasional wrong-word or 'ukawt-l-ocae' substitutions may have occurred due to the inherent limitations of voice recording. Read the chart carefully and recognize, using context, where substitutions have occurred. Not available 01/26/2025 09:48:58 02/01/2025 02/01/2025 This note is dictated and transcribed by [employer]. [employer] Set Up Operator variances may occur. Despite proofreading, typographical errors may occur. Occasional wrong-word or 'izlsm-k-yrxg' substitutions may have occurred due to the inherent limitations of voice recording. Read the chart carefully and recognize, using context, where substitutions have occurred. Not available 02/01/2025 15:32:31 02/08/2025 02/08/2025 This note is dictated and transcribed by [employer]. [employer] Set Up Operator variances may occur. Despite proofreading, typographical errors may occur. Occasional wrong-word or 'wpzzy-y-uiym' substitutions may have occurred due to the inherent limitations of voice recording. Read the chart carefully and recognize, using context, where substitutions have occurred. Not available 02/13/2025 09:23:21 Plan of Treatment Reminders Order Date Submit Date Provider Last Modified By Organization Details Last Modified Time Details Appointments Physical/ Annual Wellness 30 2025 10:00A M MANDO Hutchins Not available Not available Not available Lab HbA1c (hemoglob in A1c), blood 2024 025 [facility], [address] [place], [address], 01/21/2025 09:58:21 lipid panel, serum 2024 025 [facility], [address] [place], [address], 01/21/2025 09:58:20 CMP, serum or plasma 2024 025 [facility], [address] [place], [address], 01/21/2025 09:58:20 CBC w/ auto diff [address] Lab, [address] [place], [address], 01/27/2025 08:25:17 TSH, serum, reflex free T4 [address] Lab, [address] [place], [address], 01/27/2025 08:25:17 Referral podiatris t referral - Please call patient to schedule an appointme nt. Thank you. 2024 025 [email or web address] Giorgio GRANTM, [address] [facility], [address], [place], [address], 04/20/2025 10:42:35 Procedures None recorded. Surgeries None recorded. Imaging MAMMO, screening , digital, bilateral - Please call patient to schedule. 2024 025 [email or web address] [facility] ([facility] Sched[facility]), [address] [place], [address], 03/07/2025 14:33:25 Medication Orders mupirocin 2 % topical ointment 2024 025 [email or web address] [id number] [place] [address] [address] [facility], [place], [address], 01/20/2025 11:41:25 Bactrim DS 800 mg-160 mg tablet 2024 025 [email or web address] [facility] [id number] [place] [address] , [place], [address], 02/01/2025 15:16:36 Patient TargetsNo targets recorded. Patient InstructionsNo instructions recorded. Reason for Referral Data Management Associate Referral for Open wound of lesser toe of right foot Please call patient to schedule an appointment. Thank you. Referring Physician: Johnnie Vega, Family Medicine, Encounter Date: 01/20/2025 Results Created Date Observation Date Name Description Value Unit Range Abnormal Flag Note LastModifiedBy Organization Detail LastModifiedTime Result Notes None recorded. Problems Name Problem SNOMED Code Status Onset Date Resolution Date Notes Provider Name and Address Organization Details Recorded Time Disorder of thyroid gland 01106635 Active Not Available [facility] 3 12:02:36 Hypertensi ve disorder 75416257 Active Not Available [facility] 3 12:02:36 Morbid obesity 136206091 Active 2017 Not Available [facility] 3 12:02:36 Hypothyroi dism 87981769 Active 2017 Not Available [facility] 3 12:02:36 Essential hypertensi on 92659886 Active 2017 Not Available [facility] 3 12:02:37 History of total hip arthroplas ty 858703600374 Active 2019 Not Available [facility] 3 12:02:37 Chronic hyponatrem ia 68900988 Active 2019 Not Available [facility] 3 12:02:37 Osteoarthr itis of left hip joint 6110307060834 08 Active 2021 Not Available [facility] 3 12:02:36 History of total replacemen t of right hip joint 5325945736602 00 Active 2021 Not Available [facility] 3 12:02:37 Hyperlipid emia 91521896 Active 2022 Not Available [facility] 3 12:02:37 Obesity 035115892 Active 2022 Not Available [facility] 3 12:02:36 Vitamin D deficiency 11788112 Active 2023 JAZIEL Rodriguez [address], [address], [place], [address] , [employer] [facility] 4 11:35:59 Open wound of lesser toe of right foot 1022034675830 9104 Active 2024 MANDO Hutchins [address], [address], [place], [address] , [employer] 5 11:36:50 Prediabete s 643342530 Active 2024 MANDO Hutchins [address], [address], [place], [address] , [employer] 5 11:41:03 Ulcer of toe of right foot Active 2024 Giorgio Pizano DPM [address], [address], [place], [address] , [employer] 5 09:49:22 Hammer toe 908188412 Active 2024 Giorgio Pizano DPM [address], [address], [place], [address] , [employer] 5 09:49:29 Hyponatrem ia 74092741 Active 2024 MANDO Hutchins [address], [address], [place], [address] , [employer] [facility] 5 14:19:43 Problem Notes None recorded. Procedures Surgical History Date Name Laterality Status Provider Name and Address Organization Details Recorded Time 5 Wound Care-Podiatry completed Delia Mast RN [facility] [employer] [facility] 02/08/2025 15:58:42 5 Wound Care-Podiatry completed Delia Mast RN [facility] [employer] [facility] 02/01/2025 15:11:14 5 Wound Care-Podiatry completed Giorgio Pizano DPM [address], [address], [place], [address], [facility] [employer] [facility] 01/26/2025 09:48:39 4 Medicare Wellness CPT Code, subsequent completed Anabel Marley RN [facility] 01/21/2024 10:47:15 3 Medicare Wellness CPT Code, subsequent completed SPRING Ramirez [address], [address], [place], [address], [facility] [employer] [facility] 12/09/2022 09:56:46 3 Medicare Wellness CPT Code, Initial completed Eula Ann CMA [employer] [facility] 12/09/2022 09:23:14 0 Hip surgery completed Not Available [facility] 07/31/19 23 09:25:53 Imaging Results None recorded. Procedure Notes None recorded. Medical Equipment None Reported. Allergies Allergen ID Allergen Name Allergen Category Reaction Reaction Severity Criticality Documentation Date Start Date Code Code System Note Provider Name and Address Organization Details Recorded Time 20098 sodium chloride medicatio n Not available Not available low 01/25/2025 9863 RxNorm MANDO Hutchins [address], [address], [place], [address], [employer] [facility] 5 15:16:05 82103 Bactrim medicatio n hives Not available low 02/01/2025 29590 9 RxNorm MANDO Hutchins [address], [address], [place], [address] [facility] [employer] [facility] 5 09:15:00 Medications Name Sig Start Date [...] completed Not Available Not Available Not Available [place] 3-6-9 2019 active kady red omega Not [...] IM syringe TO BE ADMINISTE RED BY [employer] FOR IMMUNIZAT ION 06/30 completed Not Available Not Available Not Available Fluzone High-Dose 2018- (PF) 180 mcg/0.5 mL intramuscu lar syringe TO BE ADMINISTE RED BY [employer] FOR IMMUNIZAT ION 12/31 completed Not Available Not Available Not Available Vitals Date Recorded Body height Body mass index (BMI) Body weight Body temperature Oxygen saturation Heart rate Systolic And Diastolic Provider Name and Address Organization Details Last Updated DateTime 5 160.02 cm 33.5 kg/m2 85514.3 1 g 97.6 [degF] 99 % 55 /min 180/80 mm[Hg] Karina Desai RN [facility] 5 11:06:23 Date Recorded Body height Heart rate Respiratory rate Body temperature Oxygen saturation Pain severity - 0-10 verbal numeric rating [Score] - Reported Systolic And Diastolic Provider Name and Address Organization Details Last Updated DateTime 5 160.02 cm 70 /min 18 /min 97.9 [degF] 98 % 0 183/70 mm[Hg] Cleve Sun RN [facility] 5 11:47:14 Date Recorded Body height Heart rate Body temperature Oxygen saturation Respiratory rate Systolic And Diastolic Provider Name and Address Organization Details Last Updated DateTime 5 160.02 cm 96 /min 98.4 [degF] 72 % 18 /min 192/74 mm[Hg] Delia Mast RN [facility] 5 15:09:07 Date Recorded Body height Body temperature Respiratory rate Oxygen saturation Heart rate Systolic And Diastolic Provider Name and Address Organization Details Last Updated DateTime 5 160.02 cm 98.3 [degF] 18 /min 97 % 72 /min 183/82 mm[Hg] Delia Mast RN [facility] 5 15:46:29 Social History Question Answer Notes LastModified by Organization Details LastModified Time Tobacco Smoking Status Never Smoker Not Available [facility] 07/30/2022 09:25:48 Do You Have An Advance Directive? No Information not available 01/20/2025 Are You Blind Or Do You Have Difficulty Seeing? No [email or web address] Information not available 01/20/2025 Is Blood Transfusion Acceptable In An Emergency? Yes [email or web address] Information not available 01/20/2025 What Is Your Level Of Caffeine Consumption? Occasional 1 Glass Of Tea/day Diet Dr. Butler 1x/week 1 Cup Coffee 2x/week Information not available 01/20/2025 What Is Your Code Status? Full Code [email or web address] Information not available 01/20/2025 In The 14 Days Before Symptom Onset, Have You Had Close Contact With A Laboratory-conf irmed COVID-19 While That Case Was Ill? No [email or web address] Information not available 01/20/2025 In The 14 Days Before Symptom Onset, Have You Had Close Contact With A Person Who Is Under Investigation For COVID-19 While That Person Was Ill? No [email or web address] Information not available 01/20/2025 Are You Deaf Or Do You Have Serious Difficulty Hearing? No [email or web address] Information not available 01/20/2025 What Type Of Diet Are You Following? REGULAR [email or web address] Information not available 01/20/2025 What Is The Highest Grade Or Level Of School You Have Completed Or The Highest Degree You Have Received? MQ52273-4 [email or web address] Information not available 01/20/2025 Have There Been Any Changes To Your Family Or Social Situation? No Information not available 01/20/2025 What Is The Fluoride Status Of Your Home? Fluoridated [email or web address] Information not available 01/20/2025 Are There Any Guns Present In Your Home? Yes [email or web address] Information not available 01/20/2025 Do You Use Insect Repellent Routinely? No [email or web address] Information not available 01/20/2025 Where Do You Live? SingleLevelHouse [email or web address] Information not available 01/20/2025 Advance Directive- Providers Has Reviewed Directive And Consents To Follow Them (insert Provider Name With Any Objectives In Notes Field) No [email or web address] Information not available 01/20/2025 Presence Of Domestic Violence No Information not available 01/20/2025 Guns Present In The Home? Yes [email or web address] Information not available 01/20/2025 Are You Able To Care For Yourself? Yes [email or web address] Information not available 01/20/2025 Are You Blind Or Do Yo Have Difficulty Seeing? No [email or web address] Information not available 01/20/2025 Are You Deaf Or Do You Have Serious Difficulty Hearing? No [email or web address] Information not available 01/20/2025 General Stress Level? Low [email or web address] Information not available 01/20/2025 Live Alone Of With Others? With Others [email or web address] Information not available 01/20/2025 Do You Have A Medical Power Of Furnace Process Plant Operator? No Information not available 01/20/2025 How Many Children Do You Have? 0 [email or web address] Information not available 01/20/2025 Do You Have Any Pets? No [email or web address] Information not available 01/20/2025 What Is Your Relationship Status? [email or web address] Information not available 01/20/2025 Do You Have Smoke And Carbon Monoxide Detectors In Your Home? Yes [email or web address] Information not available 01/20/2025 Are You Passively Exposed To Smoke? No Information not available 01/20/2025 Are There Any Smokers In Your House? No [email or web address] Information not available 01/20/2025 What Types Of Sporting Activities Do You Participate In? Walking [email or web address] Information not available 01/20/2025 Do You Use Sunscreen Routinely? Yes [email or web address] Information not available 01/20/2025 Has Tobacco Cessation Counseling Been Provided? No [email or web address] Information not available 01/20/2025 Have You Recently Traveled Abroad? No [email or web address] Information not available 01/20/2025 Do You Have Difficulty Walking Or Climbing Stairs? Yes Having Hip Replacement On 02/20/25 [email or web address] Information not available 01/20/2025 Are You Currently In School? No Information not available 01/20/2025 Do You Have Any Dietary Restrictions? No Information not available 01/20/2025 Sex: Female Functional Status Question Answer Note LastModified by Organizat ion Details LastModified Time Do you use any illicit or recreational drugs? No Information not available 01/20/2025 Do you or have you ever used any other forms of tobacco or nicotine? No [email or web address] Information not available 01/20/2025 What is your level of alcohol consumption? None [id number] Information not available 07/30/2022 Are you currently employed? No Retired [email or web address] Information not available 01/20/2025 Do you have transportation difficulties? No [email or web address] Information not available 01/20/2025 Are you able to walk independently without assistance or assistive devices? YESWOREST [email or web address] Information not available 01/20/2025 Do you have difficulty doing errands alone? No [email or web address] Information not available 01/20/2025 Are you able to care for yourself independently? Yes [email or web address] Information not available 01/20/2025 Do you have difficulty dressing, bathing, grooming, or toileting? No Information not available 01/20/2025 Mental Status Question Answer Note LastModified by Organizat ion Details LastModified Time Do you feel stressed (tense, restless, nervous, or anxious, or unable to sleep at night)? [id number] Information not available 10/21/2022 Do you have difficulty concentrating, remembering or making decisions? No [email or web address] Information no t available 01/20/2025 Family History Relationship Description Onset Age of this Age Resolved Age Notes LastModified by Organization Details LastModified Time Father Heart disease [id number] [id number] Not available 07/30/2022 09:25:53 Father Hypertensive disorder MIGRATION.611 [id number] Not available 07/30/2022 09:25:53 Father Diabetes mellitus MIGRATION.775 [id number] Not available 07/30/2022 09:25:53 Mother Heart disease MIGRATION.155 [id number] Not available 07/30/2022 09:25:54 Mother Hypertensive disorder MIGRATION.197 [id number] Not available 07/30/2022 09:25:54 Mother Diabetes mellitus MIGRATION.674 [id number] Not available 07/30/2022 09:25:54 Medical History Condition Response THYROID DISEASE Y ARTHRITIS Y USE OF NSAIDS Y HYPERTENSION Y Gynecological HistoryNo gynecological history recorded. Obstetrics History GPAL:G 0 P 0 0 0 0 Immunizations Vaccine Type Date Status Note Provider Nam e and Address Organization Details Recorded Time influenza, unspecified formulation 3 completed ROSA [place], [place] [employer] [facility] 04/01/2023 08:36:18 Influenza, MDCK, quadrivalent, PF 8 completed MANDO Hutchins [address], [place], [address], [employer] 01/20/2025 11:26:35 Influenza, MDCK, quadrivalent, PF 7 completed MANDO Hutchins [address], [address], [place], [address], [employer] 01/20/2025 11:26:35 Influenza, adjuvanted, quadrivalent, PF 0 completed MANDO Hutchins [address], [place], [address], [employer] 01/20/2025 11:26:35 Influenza, adjuvanted, quadrivalent, PF 1 completed MANDO Hutchins [address], [address], [place], [address], [employer] 01/20/2025 11:26:35 Influenza, high-dose, trivalent, PF 9 completed MANDO Hutchins [address], [place], [address], [employer] 01/20/2025 11:26:35 Influenza, split virus, trivalent, PF 5 completed MANDO Hutchins [address], [place], [address], [employer] 01/20/2025 11:26:35 Influenza, split virus, quadrivalent, PF 6 completed MANDO Hutchins [address], [place], [address], [employer] [facility] 01/20/2025 11:26:35 Influenza, MDCK, quadrivalent, PF 8 completed MANDO Hutchins [address], [place], [address], [employer] [facility] 01/20/2025 11:26:35 Influenza, adjuvanted, quadrivalent, PF 2 completed MANDO Hutchins [address], [place], [address], [employer] [facility] 01/20/2025 11:26:35 Influenza, split virus, quadrivalent, preservative 0 completed MANDO Hutchins [address], [place], [address], [employer] [facility] 01/20/2025 11:26:35 Influenza, split virus, quadrivalent, preservative 9 completed MANDO Hutchins [address], [place], [address], [employer] [facility] 01/20/2025 11:26:35 Influenza, injectable,quadriva lent, preservative free, pediatric 7 completed MANDO Hutchins [address], [place], [address], [employer] [facility] 01/20/2025 11:26:35 pneumococcal polysaccharide PPV23 0 completed Not Available [facility] 07/30/2022 09:31:49 Tdap 9 completed Not Available [facility] 07/30/2022 09:31:49 Pneumococcal conjugate PCV 13 9 completed Not Available [facility] 07/30/2022 09:31:49 Past Encounters Encounter ID Performer Location Encounter Start Date Encounter Closed Date Diagnosis/Indication Diagnosis SNOMED-CT Code Diagnosis ICD10 Code Diagnosis IMO Codes Diagnosis Note [id number] [facility] [place] [address] [facility] [address] [place] [address] 12/25/2020 00:00:00 12/25/2020 15:47:45 [id number] SPRING Ramirez [facility] Primary Care [facility] [address] [facility] [address] [place] [address] 03/13/2021 00:00:00 03/13/2021 11:14:37 [id number] Everardo Gallego MD [facility] [place] [address] [facility] [address] [place] [address] 12/31/2021 00:00:00 12/31/2021 15:11:21 [id number] Eleanor Felder MD [facility] Primary Care [facility] [address] [facility] [address] [place] [address] 10/21/2022 08:27:40 10/21/2022 09:20:35 Hypothyroidism 67079014 E03.9 Recheck labs. Continue levothyrox ine 50mcg daily. Hyperlipidemia 79412480 E78.5 Recheck labs. Continue atorvastat in 20mg daily. Essential hypertension 21836910 I10 Stable, continue to monitor.Co ntinue Losartan 50mg daily and HCTZ 12.5mg daily.She historical ly has also had low sodium, will recheck CMP. Obesity 068963042 E66.9 Recent weight gain.She states she is walking every morning at least 20 minutes up and down a hill in her yard.Discu ssed healthy eating and exercise. Healthy eating packet given today in office.Gautam l continue to monitor weight. [id number] Eleanor Felder MD [facility] Primary Care [facility] [address] [facility] [address] [place] [address] 12/09/2022 09:18:05 12/09/2022 12:29:29 Adult health examination 742166855 Z00.00 Labs completed 10/21/22.Re commended routine eye exams and dental cleanings. Shingles vaccine- recommende dPneumonia vaccine- 12/22/18, 02/08/20Flu vaccine- recommende d each fallTetanu s vaccine- 12/22/2018C olonoscopy - cologuard a few years ago, wnl; does not remember exactly when, declines todayMammo gram- does not remember when it was done but wnl; declines to update todayDEXA- recommende d, declines Screening for disorder 607475160 Z13.9 [id number] JAZIEL Rodriguez [facility] [address] [place] [address] 01/21/2024 11:16:30 01/21/2024 11:51:35 Adult health examination 969935868 Z00.00 Screening for disorder 031191552 Z13.9 Thyroid di sorder screening 246616927 Z13.29 Diabetes m ellitus screening 581296718 Z13.1 Anemia screening 5412507 07 Z13.0 Screening for malignant neoplasm of breast 853518063 Z12.39 Hyperlipid emia screening 133789294 Z13.220 Vitamin D deficiency 347 09142 E55.9 [id number] Virgilio Jansen MD [facility] [address] 01/20/2025 10:44:45 01/20/2025 12:17:55 Hypothyroidism 59972715 E03.9 Well controlled , has been on the same dose for many years Chronic hyponatremia 503 05136 E87.1 Taking daily sodium chloride Osteoarthr itis of left hip joint 1979248232 65547 M16.12 scheduled for replacemen t 02/20/25 Hyperlipidemia 91302379 E78.5 Will check labs. Managed with atorvastat in and omega 3 Essential hypertension 05164676 I10 Elevated today, admits to white coat syndromeWi ll start monitoring at home Screening mammography 24 260078 Z12.31 66989116 Open wound of lesser toe of right foot 6966325045 3568247 S91.104A 99387367 Blister that rupture, third toe is red, warm, swollen Prediabetes 504992086 R7 3.03 047213 Last A1C 6.1 [id number] Giorgio Pizano DPM [facility] [address] [place] [address] 01/25/2025 11:04:40 01/26/2025 10:18:53 Prediabetes 805458441 R73.03 506213 continue diabetic control per PCP recommenda tions Ulcer of t oe of right foot 5626674221 8281921 L97.512 06531270 right 3rd toemupiroc in wet-to-dry dressings, daily p1wlamailc ng at all timesfollo w-up one-week Hammer toe 265926655 M20 .41 99777423 discuss treatment optionsDis pensed toe crest padrecomme nd supportive shoe gear [id number] Giorgio Pizano DPM [facility] [address] [place] [address] 02/01/2025 14:59:42 02/01/2025 17:27:13 Prediabetes 556984182 R73.03 901057 continue diabetic control per PCP recommenda tions Ulcer of t oe of right foot 3047295492 3974754 L97.512 49548837 right 3rd toefinish Bactrim-- developed rashmupiro kannan wet-to-dry dressings, daily d2emakcnpi ng at all timesfollo w-up one-week Hammer toe 476289287 M20 .41 89108017 discuss treatment optionsDis pensed toe crest pad-- Continue toe crest padsrecomm end supportive shoe gear [id number] Giorgio Pizano DPM [facility] [address] [place] [address] 02/08/2025 14:44:28 02/13/2025 09:34:44 Ulcer of toe of right foot 7432960607 4737104 L97.512 01384703 right 3rd toemupiroc in wet-to-dry dressings, daily v7eziyratw ng at all timesfollo w-up one-week Hammer toe 482679691 M20 .41 18425921 discuss treatment optionsDis pensed toe crest pad-- Continue toe crest padsrecomm end supportive shoe gear Prediabetes 062896102 R7 3.03 628236 continue diabetic control per PCP recommenda tions [id number] Virgilio Jansen MD [facility] [address] [address] 03/20/2025 14:56:06 03/22/2025 03:59:04 Health Concerns Section Related Observation LastModified by Organization Jessica ls LastModified Time None Recorded Concern Status LastModified by Organization Details LastModified Time None Recorded Advance Directives Directive N: Payers Insurance Date Sequence Insurance Name Policy Number Policy Lam Covered Member ID Lam Member ID Guarantor Name 03/20/2025 1 [place] Margaret Odomfish [id number] Margaret Spears Marshallro 01/30/2025 2 [employer] (MEDICARE SUPPLEMENT) Margaret Olivaresro [id number] Margaret Odomtfro 01/30/2025 [employer] Margaret Odomeduinro Margaret Spears Leitfro 01/30/2025 [employer] Margaret Olivaresro Margaret Odomtfro 01/30/2025 [employer] Margaret Olivaresro Margaret Odomtfro 03/20/2025 2 [facility] (MEDICARE SUPPLEMENT) Margaret Spears Marshallro [id number] Margaret Olivaresserge Notes Date Note Type Note Provider Name and Address Organization Details Recorded Time 01/20/2025 text/html Livia Santos is a 69 year old female patient here today to establish care.She needs a surgical clearance She is scheduled for a Left total hip replacement with Dr. Everardo Gallego on 02/20/25 due to arthritis. She previously had a right hip replacement in 2019 without complication. Hyperlipidemia. This is well controlled.They are currently taking atorvastatin 20 mg daily and omega 3. Denies muscle cramping.Advised to limit fatty/greasy foods and increase cardiovascular exercise History of hypertension. This is well controlled. Patient does not check BP readings at home.BP on arrival today is 180/80.She is currently taking losartan 50 mg daily and HCTZ 12.5 mg dailyPatient declines headaches, tinnitus, light headedness, fatigue. History of hypothyroidism. She is currently taking levothyroxine 50 mg daily. She has been on this dose many years She does have prediabetes, last A1C 6.1. She manages with diet and exercise. Flu shot: 4COVID vaccines: declinesTdap: 2019Pneumococcal: PCV13 2019, PPV23 2020Shingrix: recommendedMammogram : orderedPAP: does not want to do anymoreColonoscopy: cologuard completed, unsure when MANDO Hutchins [address], [place], [address], [facility] [employer] [facility] 01/20/2025 12:11:30 01/25/2025 text/html Patient is a 69-year-old female she presents the office with complaints of a wound to the distal 3rd toe she states that she has pain to the toe she states that she needs to get the wound healed as she has an upcoming orthopedic surgery scheduled in January. Patient denies any fever, chills, nausea or vomiting. Patient denies knowing how the wounds started she has callusing of the toe on examination it is evident that she has chronic hammertoe deformities and the pressure is causing wound breakdown and callusing of the toe. Patient denies any conservative treatment for this option. Patient denies any fever, chills, nausea or vomiting. Giorgio Pizano DPM [address] [employer], [place], [address], [employer] [facility] 01/26/2025 09:50:42 02/01/2025 text/html ROS as noted in the HPI . Patient is a 69-year-old female she returns for follow-up on wounds secondary to hammertoe. Patient is doing well she states she did develop a rash about a day before she finished her antibiotics. Patient was on oral Bactrim. Patient states the rash is since resolved. Patient denies any other complaints. Giorgio Pizano DPM [address] [employer] [address] [employer], [place], [address], [employer] [facility] 02/01/2025 15:33:12 02/08/2025 text/html ROS as noted in the HPI . Patient is a 69-year-old female who returns the office for follow-up on hammertoe with wound to the distal toe. Patient overall is doing well she is almost completely healed she has no acute signs of infection. Patient denies any other complaints and continues offloading with toe crest pad. Giorgio Pizano DPM [address], [employer], [place], [address], [place] [facility] 02/13/2025 09:24:02 OBGyn Episode No OBEpisode recorded.
--- OUTSIDE RECORDS SUMMARY | 2025-04-24 02:07 | XMS_ITS | Clinical Summary ---
Author Organization [facility] Address [address] [place] [address] Care Team Providers Care Wirer Passenger Car Name Role Phone Unavailable Primary Care Provider [...]
--- OUTSIDE RECORDS SUMMARY | 2025-04-24 02:07 | XMS_ITS | Continuity of Care Document ---
Author Organization [place] - [facility] [employer], [facility] Address [address] [place] [address] Care Team Providers Care Shingle Catcher Name Role Phone JOHNNIE VEGA Primary Care Provider [phone] JOHNNIE VEGA Referring Provider ANTONI OCASIO Sap Technical Architect Unavailable ANTONI OCASIO Sap Technical Architect Unavailable ANTONI OCASIO Sap Technical Architect Unavailable Assessment Encounter Date Assessment Date Assessment LastModified by Organization Details LastModified Time 01/25/2025 01/25/2025 This note is dictated and transcribed by [employer]. [employer] variances may occur. Despite proofreading, typographical errors may occur. Occasional wrong-word or 'bkgua-x-nrzv' substitutions may have occurred due to the inherent limitations of voice recording. Read the chart carefully and recognize, using context, where substitutions have occurred. [email or web address] Not available 01/26/2025 09:48:58 Plan of Treatment Reminders Order Date Submit [...] Details Recorded Time Disorder of thyroid gland 42713107 Active Not Available [facility] 3 12:02:36 Hypertensi ve disorder 96175830 Active Not Available [facility] 3 12:02:36 Morbid obesity 581102014 Active 2017 Not Available [facility] 3 12:02:36 Hypothyroi dism 35074102 Active 2017 Not Available [facility] 3 12:02:36 Essential hypertensi on 39662057 Active 2017 Not Available [facility] 3 12:02:37 History of total hip arthroplas ty 891419140263 Active 2019 Not Available [facility] 3 12:02:37 Chronic hyponatrem ia 28578441 Active 2019 Not Available [facility] 3 12:02:37 Osteoarthr itis of left hip joint 5449588988256 08 Active 2021 Not Available [facility] 3 12:02:36 History of total replacemen t of right hip joint 7843254490863 00 Active 2021 Not Available [facility] 3 12:02:37 Hyperlipid emia 81660408 Active 2022 Not Available [facility] 3 12:02:37 Obesity 613962291 Active 2022 Not Available [facility] 3 12:02:36 Vitamin D deficiency 00840837 Active 2023 JAZIEL Rodriguez [address], [address], [place], [address] , [employer] [facility] [employer] 4 11:35:59 Open wound of lesser toe of right foot 3508681399290 9104 Active 2024 MANDO Hutchins [address], [place], [address] , [employer] [facility] [employer] 5 11:36:50 Prediabete s 889641971 Active 2024 MANDO Hutchins [address], [address], [place], [address] , [employer] [facility] [employer] 5 11:41:03 Ulcer of toe of right foot Active 2024 Giorgio Pizano DPM [address], [address], [place], [address] , [facility] [employer] [facility] [employer] 5 09:49:22 Hammer toe 478652178 Active 2024 Giorgio Pizano DPM [address], [place], [address] , [facility] [employer] [facility] [employer] 5 09:49:29 Hyponatrem ia 41213612 Active 2024 MANDO Hutchins [address], [address], [place], [address] , [facility] [employer] [facility] [employer] 5 14:19:43 Problem Notes None recorded. Procedures Surgical History Date Name Laterality Status Provider Name and Address Organization Details Recorded Time 5 Wound Care-Podiatry completed Delia Mast RN [facility] [employer] 02/08/2025 15:58:42 5 Wound Care-Podiatry completed Delia Mast RN [facility] [employer] 02/01/2025 15:11:14 5 Wound Care-Podiatry completed Giorgio Pizano DPM [address], [address], [place], [address], [facility] 01/26/2025 09:48:39 4 Medicare Wellness CPT Code, subsequent completed Anabel Marley RN [facility] 01/21/2024 10:47:15 3 Medicare Wellness CPT Code, subsequent completed SPRING Ramirez [address], [address], [place], [address], [facility] [employer] [facility] [employer] 12/09/2022 09:56:46 3 Medicare Wellness CPT Code, Initial completed Eula Ann CMA [employer] 12/09/2022 09:23:14 0 Hip surgery completed Not Available [facility] 07/31/19 09:25:53 Imaging Results None recorded. Procedure Notes None recorded. Medical Equipment None Reported. Allergies Allergen ID Allergen Name Allergen Category Reaction Reaction Severity Criticality Documentation Date Start Date Code Code System Note Provider Name and Address Organization Details Recorded Time 75883 sodium chloride medicatio n Not available Not available low 01/25/2025 9863 RxNorm Johnnie Thilker, [employer]ING [employer]CH[employer] [address], [address], [place], [address], [facility] 5 15:16:05 18645 Bactrim medicatio n hives Not available low 02/01/2025 06784 9 RxNorm La Pushleslie Gutierrezlker, [employer] [address], [address], [place], [address], [facility] 5 09:15:00 Medications Name Sig Start Date [...] completed Not Available Not Available Not Available [place] 3-6-9 2019 active kady red omega Not [...] Vitals Date Recorded Body height Heart rate Respiratory rate Body temperature Oxygen saturation Pain severity - 0-10 verbal numeric rating [Score] - Reported Systolic And Diastolic Provider Name and Address Organization Details Last Updated DateTime 5 160.02 cm 70 /min 18 /min 97.9 [degF] 98 % 0 183/70 mm[Hg] Cleve Sun RN [place] [facility] [employer] 5 11:47:14 Social History Question Answer Notes LastModified by Organization Details LastModified Time Tobacco Smoking Status Never Smoker Not Available [facility] 07/30/2022 09:25:48 Do You Have An Advance Directive? No [email or web address] Information not available 01/20/2025 Are You Blind Or Do You Have Difficulty Seeing? No [email or web address] Information not available 01/20/2025 Is Blood Transfusion Acceptable In An Emergency? Yes [email or web address] Information not available 01/20/2025 What Is Your Level Of Caffeine Consumption? Occasional 1 Glass Of Tea/day Diet Dr. Butler 1x/week 1 Cup Coffee 2x/week [email or web address] Information not available 01/20/2025 What Is Your Code Status? Full Code [email or web address] Information not available 01/20/2025 In The 14 Days Before Symptom Onset, Have You Had Close Contact With A Laboratory-conf irmed COVID-19 While That Case Was Ill? No [email or web address] Information not available 01/20/2025 In The 14 Days Before Symptom Onset, Have You Had Close Contact With A Person Who Is Under Investigation For COVID-19 While That Person Was Ill? No [email or web address] Information not available 01/20/2025 Are You Deaf Or Do You Have Serious Difficulty Hearing? No [email or web address] Information not available 01/20/2025 What Type Of Diet Are You Following? REGULAR [email or web address] Information not available 01/20/2025 What Is The Highest Grade Or Level Of School You Have Completed Or The Highest Degree You Have Received? UC11398-5 [email or web address] Information not available 01/20/2025 Have There Been Any Changes To Your Family Or Social Situation? No [email or web address] Information not available 01/20/2025 What Is The Fluoride Status Of Your Home? Fluoridated [email or web address] Information not available 01/20/2025 Are There Any Guns Present In Your Home? Yes [email or web address] Information not available 01/20/2025 Do You Use Insect Repellent Routinely? No [email or web address] Information not available 01/20/2025 Where Do You Live? SingleLevelHouse [email or web address] Information not available 01/20/2025 Advance Directive- Providers Has Reviewed Directive And Consents To Follow Them (insert Provider Name With Any Objectives In Notes Field) No [email or web address] Information not available 01/20/2025 Presence Of Domestic Violence No [email or web address] Information not available 01/20/2025 Guns Present In The Home? Yes [email or web address] Information not available 01/20/2025 Are You Able To Care For Yourself? Yes [email or web address] Information not available 01/20/2025 Are You Blind Or Do Yo Have Difficulty Seeing? No [email or web address] Information not available 01/20/2025 Are You Deaf Or Do You Have Serious Difficulty Hearing? No [email or web address] Information not available 01/20/2025 General Stress Level? Low [email or web address] Information not available 01/20/2025 Live Alone Of With Others? With Others [email or web address] Information not available 01/20/2025 Do You Have A Medical Power Of Dry Janitor? No [email or web address] Information not available 01/20/2025 How Many Children Do You Have? 0 [email or web address] Information not available 01/20/2025 Do You Have Any Pets? No [email or web address] Information not available 01/20/2025 What Is Your Relationship Status? [email or web address] Information not available 01/20/2025 Do You Have Smoke And Carbon Monoxide Detectors In Your Home? Yes [email or web address] Information not available 01/20/2025 Are You Passively Exposed To Smoke? No Information not available 01/20/2025 Are There Any Smokers In Your House? No [email or web address] Information not available 01/20/2025 What Types Of Sporting Activities Do You Participate In? Walking [email or web address] Information not available 01/20/2025 Do You Use Sunscreen Routinely? Yes [email or web address] Information not available 01/20/2025 Has Tobacco Cessation Counseling Been Provided? No [email or web address] Information not available 01/20/2025 Have You Recently Traveled Abroad? No Information not available 01/20/2025 Do You Have Difficulty Walking Or Climbing Stairs? Yes Having Hip Replacement On 02/20/25 [email or web address] Information not available 01/20/2025 Are You Currently In School? No [email or web address] Information not available 01/20/2025 Do You Have Any Dietary Restrictions? No rlwigsz131 Information not available 01/20/2025 Sex: Female Functional Status Question Answer Note LastModified by Organizat ion Details LastModified Time Do you use any illicit or recreational drugs? No [email or web address] Information not available 01/20/2025 Do you or have you ever used any other forms of tobacco or nicotine? No [email or web address] Information not available 01/20/2025 What is your level of alcohol consumption? None [id number] Information not available 07/30/2022 Are you currently employed? No Retired [email or web address] Information not available 01/20/2025 Do you have transportation difficulties? No Information not available 01/20/2025 Are you able to walk independently without assistance or assistive devices? YESWOREST [email or web address] Information not available 01/20/2025 Do you have difficulty doing errands alone? No [email or web address] Information not available 01/20/2025 Are you able to care for yourself independently? Yes [email or web address] Information not available 01/20/2025 Do you have difficulty dressing, bathing, grooming, or toileting? No [email or web address] Information not available 01/20/2025 Mental Status Question Answer Note LastModified by Organizat ion Details LastModified Time Do you feel stressed (tense, restless, nervous, or anxious, or unable to sleep at night)? [email or web address] Information not available 10/21/2022 Do you have difficulty concentrating, remembering or making decisions? No [email or web address] Information no t available 01/20/2025 Family History Relationship Description Onset Age of this Age Resolved Age Notes LastModified by Organization Details LastModified Time Father Heart disease [id number] [id number] Not available 07/30/2022 09:25:53 Father Hypertensive disorder MIGRATION.488 [id number] Not available 07/30/2022 09:25:53 Father Diabetes mellitus MIGRATION.131 [id number] Not available 07/30/2022 09:25:53 Mother Heart disease MIGRATION.197 8989001 Not available 07/30/2022 09:25:54 Mother Hypertensive disorder MIGRATION.493 [id number] Not available 07/30/2022 09:25:54 Mother Diabetes mellitus MIGRATION.904 [id number] Not available 07/30/2022 09:25:54 Medical History Condition Response THYROID DISEASE Y ARTHRITIS Y USE OF NSAIDS Y HYPERTENSION Y Gynecological HistoryNo gynecological history recorded. Obstetrics History GPAL:G 0 P 0 0 0 0 Immunizations Vaccine Type Date Status Note Provider Nam e and Address Organization Details Recorded Time influenza, unspecified formulation 3 completed Catia Dodson LPN null, [place] - [facility] 04/01/2023 08:36:18 Influenza, MDCK, quadrivalent, PF 8 completed MANDO Hutchins [address], [place], [address], [employer] [facility] 01/20/2025 11:26:35 Influenza, MDCK, quadrivalent, PF 7 completed MANDO Hutchins [address], [address], [place], [address], [employer] [facility] 01/20/2025 11:26:35 Influenza, adjuvanted, quadrivalent, PF 0 completed MANDO Hutchins [address], [address], [place], [address], [employer] [facility] 01/20/2025 11:26:35 Influenza, adjuvanted, quadrivalent, PF [address], [place], [address], [employer] [facility] 01/20/2025 11:26:35 Influenza, high-dose, trivalent, PF 9 completed MANDO Hutchins [address], [address], [place], [address], [employer] [facility] [facility] 01/20/2025 11:26:35 Influenza, split virus, trivalent, PF 5 completed MANDO Hutchins [address], [place], [address], [employer] [facility] [facility] 01/20/2025 11:26:35 Influenza, split virus, quadrivalent, PF 6 completed MANDO Hutchins [address], [place], [address], [employer] [facility] [facility] 01/20/2025 11:26:35 Influenza, MDCK, quadrivalent, PF 8 completed MANDO Hutchins [address], [place], [address], [facility] [employer] [facility] 01/20/2025 11:26:35 Influenza, adjuvanted, quadrivalent, PF 2 completed MANDO Hutchins [address], [place], [address], [facility] [employer] [facility] 01/20/2025 11:26:35 Influenza, split virus, quadrivalent, preservative 0 completed MANDO Hutchins [address], [place], [address], [facility] [employer] [facility] [employer] [facility] 01/20/2025 11:26:35 Influenza, split virus, quadrivalent, preservative 9 completed MANDO Hutchins [address], [place], [address], [facility] [employer] [facility] [employer] [facility] 01/20/2025 11:26:35 Influenza, injectable,quadriva lent, preservative free, pediatric 7 completed MANDO Hutchins [address], [place], [address], [facility] [employer] [facility] [employer] [facility] 01/20/2025 11:26:35 pneumococcal polysaccharide PPV23 0 completed Not Available [facility] 07/30/2022 09:31:49 Tdap 9 completed Not Available [facility] 07/30/2022 09:31:49 Pneumococcal conjugate PCV 13 9 completed Not Available [facility] 07/30/2022 09:31:49 Past Encounters Encounter ID Performer Location Encounter Start Date Encounter Closed Date Diagnosis/Indication Diagnosis SNOMED-CT Code Diagnosis ICD10 Code Diagnosis IMO Codes Diagnosis Note [id number] Virgilio Jansen MD [facility] [address] [address] 01/20/2025 10:44:45 01/20/2025 12:17:55 Hypothyroidism 12425492 E03.9 Well controlled , has been on the same dose for many years Chronic hyponatremia 503 90564 E87.1 Taking daily sodium chloride Osteoarthr itis of left hip joint 6518208714 85028 M16.12 scheduled for replacemen t 02/20/25 Hyperlipidemia 79025967 E78.5 Will check labs. Managed with atorvastat in and omega 3 Essential hypertension 75909017 I10 Elevated today, admits to white coat syndromeWi ll start monitoring at home Screening mammography 24 954624 Z12.31 87463086 Open wound of lesser toe of right foot 7060114151 1058290 S91.104A 01715904 Blister that rupture, third toe is red, warm, swollen Prediabetes 730739202 R7 3.03 909550 Last A1C 6.1 [id number] Giorgio Pizano DPM [facility] [address] [place] [address] 01/25/2025 11:04:40 01/26/2025 10:18:53 Prediabetes 967887869 R73.03 303989 continue diabetic control per PCP recommenda tions Ulcer of t oe of right foot 7663013282 7484823 L97.512 11316942 right 3rd toemupiroc in wet-to-dry dressings, daily p1kwaagiiw ng at all timesfollo w-up one-week Hammer toe 789820582 M20 .41 48812125 discuss treatment optionsDis pensed toe crest padrecomme nd supportive shoe gear Health Concerns Section Related Observation LastModified by Organization Detai ls LastModified Time None Recorded Concern Status LastModified by Organization Details LastModified Time None Recorded Payers Encounter Date Sequence Insurance Name Policy Number Policy Lam Covered Member ID Lam Member ID Guarantor Name 01/25/2025 1 [place] Margaret Santos [id number] Margaret Santos 01/25/2025 2 [facility] (MEDICARE SUPPLEMENT) Margaret Santos [id number] Margaret Santos Notes Date Note Type Note Provider Name and Address Organization Details Recorded Time 01/25/2025 text/html Patient is a 69-year-old female [...] nausea or vomiting. Giorgio Pizano DPM [address] [facility] [address], [place], [address], [facility] [employer] [facility] 01/26/2025 09:50:42 OBGyn Episode No OBEpisode recorded.
--- OUTSIDE RECORDS SUMMARY | 2025-04-24 02:07 | XMS_ITS | Continuity of Care Document ---
Author Organization [place] - [facility] [employer] [facility] [employer], [facility] Address [address] [place] [address] Care Team Providers Care Web Marketing Intern Name Role Phone JOHNNIE VEGA Primary Care Provider JOHNNIE VEGA Referring Provider ANTONI OCASIO Quality Assurance Group Leader Unavailable ANTONI OCASIO Quality Assurance Group Leader Unavailable ANTONI OCASIO Quality Assurance Group Leader Unavailable Assessment Encounter Date Assessment Date Assessment LastModified by Organization Details LastModified Time 02/08/2025 02/08/2025 This note is dictated and transcribed by [employer]. Pharmacy Student variances may occur. Despite proofreading, typographical errors may occur. Occasional wrong-word or 'jaewu-m-iuxk' substitutions may have occurred due to the inherent limitations of voice recording. Read the chart carefully and recognize, using context, where substitutions have occurred. [email or web address] Not available 02/13/2025 09:23:21 Plan of Treatment [...] Details Recorded Time Disorder of thyroid gland 37197508 Active Not Available [facility] 3 12:02:36 Hypertensi ve disorder 55387495 Active Not Available [facility] 3 12:02:36 Morbid obesity 962585310 Active 2017 Not Available [facility] 3 12:02:36 Hypothyroi dism 39017749 Active 2017 Not Available [facility] 3 12:02:36 Essential hypertensi on 33460843 Active 2017 Not Available [facility] 3 12:02:37 History of total hip arthroplas ty 649903913887 Active 2019 Not Available [facility] 3 12:02:37 Chronic hyponatrem ia 65447291 Active 2019 Not Available [facility] 3 12:02:37 Osteoarthr itis of left hip joint 9612129868970 08 Active 2021 Not Available [facility] 3 12:02:36 History of total replacemen t of right hip joint 2899730276966 00 Active 2021 Not Available [facility] 3 12:02:37 Hyperlipid emia 15312601 Active 2022 Not Available [facility] 3 12:02:37 Obesity 183509485 Active 2022 Not Available [facility] 3 12:02:36 Vitamin D deficiency 63693281 Active 2023 JAZIEL Rodriguez [address], [address], [place], [address] , [place] [facility] [employer] 4 11:35:59 Open wound of lesser toe of right foot 6700525709547 9104 Active 2024 MANDO Hutchins [address], [address], [place], [address] , [place] [facility] [employer] 5 11:36:50 Prediabete s 355228676 Active 2024 MANDO Hutchins [address], [address], [place], [address] , [place] [facility] [employer] 5 11:41:03 Ulcer of toe of right foot Active 2024 Giorgio Pizano DPM [address], [place], [address] , [facility] [employer] [facility] [employer] 5 09:49:22 Hammer toe 935494451 Active 2024 Giorgio Pizano DPM [address], [place], [address] , [facility] [employer] [facility] [employer] 5 09:49:29 Hyponatrem ia 75980518 Active 2024 MANDO Hutchins [address], [address], [place], [address] , [facility] [employer] [facility] [employer] 5 14:19:43 Problem Notes None recorded. Procedures Surgical History Date Name Laterality Status Provider Name and Address Organization Details Recorded Time 5 Wound Care-Podiatry completed Delia Mast RN [facility] [employer] 02/08/2025 15:58:42 5 Wound Care-Podiatry completed Delia Mast RN [facility] [employer] 02/01/2025 15:11:14 5 Wound Care-Podiatry completed Giorgio Pizano DPM [address], [place], [address], [employer] 01/26/2025 09:48:39 4 Medicare Wellness CPT Code, subsequent completed Anabel Marley RN [employer] 01/21/2024 10:47:15 3 Medicare Wellness CPT Code, subsequent completed SPRING Ramirez [address], [place], [address], [facility] [employer] [facility] [employer] 12/09/2022 09:56:46 3 Medicare Wellness CPT Code, Initial completed Eula Ann CMA [place] [employer] 12/09/2022 09:23:14 0 Hip surgery completed Not Available [facility] 07/31/19 09:25:53 Imaging Results None recorded. Procedure Notes None recorded. Medical Equipment None Reported. Allergies Allergen ID Allergen Name Allergen Category Reaction Reaction Severity Criticality Documentation Date Start Date Code Code System Note Provider Name and Address Organization Details Recorded Time 75146 sodium chloride medicatio n Not available Not available low 01/25/2025 9863 RxNorm Johnnie Thilker, LIGHTING SPECIALIST [address], [address], [place], [address], [employer] 5 15:16:05 84731 Bactrim medicatio n hives Not available low 02/01/2025 19147 9 RxNorm [place] Gut[place], LIGHTING SPECIALIST [address], [address], [place], [address], [employer] 5 09:15:00 Medications Name Sig Start Date [...] completed Not Available Not Available Not Available [place] 3-6-9 2019 active kady red omega Not [...] Available Vitals Date Recorded Body height Body temperature Respiratory rate Oxygen saturation Heart rate Systolic And Diastolic Provider Name and Address Organization Details Last Updated DateTime 5 160.02 cm 98.3 [degF] 18 /min 97 % 72 /min 183/82 mm[Hg] Delia Mast RN [place] [facility] 5 15:46:29 Social History Question Answer Notes LastModified by Organization Details LastModified Time Tobacco Smoking Status Never Smoker Not Available [facility] 07/30/2022 09:25:48 Do You Have An Advance Directive? No [email or web address] Information not available 01/20/2025 Are You Blind Or Do You Have Difficulty Seeing? No [email or web address] Information not available 01/20/2025 Is Blood Transfusion Acceptable In An Emergency? Yes [email or web address] Information not available 01/20/2025 What Is Your Level Of Caffeine Consumption? Occasional 1 Glass Of Tea/day Diet Dr. Butler 1x/week 1 Cup Coffee 2x/week [email or web address] Information not available 01/20/2025 What Is Your Code Status? Full Code [email or web address] Information not available 01/20/2025 In The 14 Days Before Symptom Onset, Have You Had Close Contact With A Laboratory-conf irmed COVID-19 While That Case Was Ill? No [email or web address] Information not available 01/20/2025 In The 14 Days Before Symptom Onset, Have You Had Close Contact With A Person Who Is Under Investigation For COVID-19 While That Person Was Ill? No [email or web address] Information not available 01/20/2025 Are You Deaf Or Do You Have Serious Difficulty Hearing? No [email or web address] Information not available 01/20/2025 What Type Of Diet Are You Following? REGULAR [email or web address] Information not available 01/20/2025 What Is The Highest Grade Or Level Of School You Have Completed Or The Highest Degree You Have Received? OS17077-2 [email or web address] Information not available 01/20/2025 Have There Been Any Changes To Your Family Or Social Situation? No [email or web address] Information not available 01/20/2025 What Is The Fluoride Status Of Your Home? Fluoridated [email or web address] Information not available 01/20/2025 Are There Any Guns Present In Your Home? Yes [email or web address] Information not available 01/20/2025 Do You Use Insect Repellent Routinely? No [email or web address] Information not available 01/20/2025 Where Do You Live? SingleLevelHouse [email or web address] Information not available 01/20/2025 Advance Directive- Providers Has Reviewed Directive And Consents To Follow Them (insert Provider Name With Any Objectives In Notes Field) No [email or web address] Information not available 01/20/2025 Presence Of Domestic Violence No [email or web address] Information not available 01/20/2025 Guns Present In The Home? Yes [email or web address] Information not available 01/20/2025 Are You Able To Care For Yourself? Yes [email or web address] Information not available 01/20/2025 Are You Blind Or Do Yo Have Difficulty Seeing? No [email or web address] Information not available 01/20/2025 Are You Deaf Or Do You Have Serious Difficulty Hearing? No [email or web address] Information not available 01/20/2025 General Stress Level? Low [email or web address] Information not available 01/20/2025 Live Alone Of With Others? With Others [email or web address] Information not available 01/20/2025 Do You Have A Medical Power Of Community Development Officer? No [email or web address] Information not available 01/20/2025 How Many Children Do You Have? 0 [email or web address] Information not available 01/20/2025 Do You Have Any Pets? No [email or web address] Information not available 01/20/2025 What Is Your Relationship Status? [email or web address] Information not available 01/20/2025 Do You Have Smoke And Carbon Monoxide Detectors In Your Home? Yes [email or web address] Information not available 01/20/2025 Are You Passively Exposed To Smoke? No [email or web address] Information not available 01/20/2025 Are There Any Smokers In Your House? No [email or web address] Information not available 01/20/2025 What Types Of Sporting Activities Do You Participate In? Walking Information not available 01/20/2025 Do You Use Sunscreen Routinely? Yes [email or web address] Information not available 01/20/2025 Has Tobacco Cessation Counseling Been Provided? No [email or web address] Information not available 01/20/2025 Have You Recently Traveled Abroad? No Information not available 01/20/2025 Do You Have Difficulty Walking Or Climbing Stairs? Yes Having Hip Replacement On 02/20/25 Information not available 01/20/2025 Are You Currently In School? No [email or web address] Information not available 01/20/2025 Do You Have Any Dietary Restrictions? No [email or web address] Information not available 01/20/2025 Sex: Female Functional Status Question Answer Note LastModified by Organizat ion Details LastModified Time Do you use any illicit or recreational drugs? No [email or web address] Information not available 01/20/2025 Do you or have you ever used any other forms of tobacco or nicotine? No [email or web address] Information not available 01/20/2025 What is your level of alcohol consumption? None [id number] Information not available 07/30/2022 Are you currently employed? No Retired [email or web address] Information not available 01/20/2025 Do you have transportation difficulties? No [email or web address] Information not available 01/20/2025 Are you able to walk independently without assistance or assistive devices? YESWOREST [email or web address] Information not available 01/20/2025 Do you have difficulty doing errands alone? No Information not available 01/20/2025 Are you able to care for yourself independently? Yes [email or web address] Information not available 01/20/2025 Do you have difficulty dressing, bathing, grooming, or toileting? No [email or web address] Information not available 01/20/2025 Mental Status Question Answer Note LastModified by Organizat ion Details LastModified Time Do you feel stressed (tense, restless, nervous, or anxious, or unable to sleep at night)? [id number] Information not available 10/21/2022 Do you have difficulty concentrating, remembering or making decisions? No [email or web address] Information no t available 01/20/2025 Family History Relationship Description Onset Age of this Age Resolved Age Notes LastModified by Organization Details LastModified Time Father Heart disease [id number] Not available 07/30/2022 09:25:53 Father Hypertensive disorder MIGRATION.175 [id number] Not available 07/30/2022 09:25:53 Father Diabetes mellitus MIGRATION.716 [id number] Not available 07/30/2022 09:25:53 Mother Heart disease MIGRATION.171 [id number] Not available 07/30/2022 09:25:54 Mother Hypertensive disorder MIGRATION.261 [id number] Not available 07/30/2022 09:25:54 Mother Diabetes mellitus MIGRATION.970 [id number] Not available 07/30/2022 09:25:54 Medical History Condition Response THYROID DISEASE Y ARTHRITIS Y USE OF NSAIDS Y HYPERTENSION Y Gynecological HistoryNo gynecological history recorded. Obstetrics History GPAL:G 0 P 0 0 0 0 Immunizations Vaccine Type Date Status Note Provider Nam e and Address Organization Details Recorded Time influenza, unspecified formulation completed Catia Dodson LPN null, [place] [facility] 04/01/2023 08:36:18 Influenza, MDCK, quadrivalent, PF 8 completed MANDO Hutchins [address], [place], [address], [place] [facility] [employer] [facility] 01/20/2025 11:26:35 Influenza, MDCK, quadrivalent, PF 7 completed MANDO Hutchins [address], [place], [address], [place] [facility] [employer] [facility] 01/20/2025 11:26:35 Influenza, adjuvanted, quadrivalent, PF 0 completed MANDO Hutchins [address], [place], [address], [place] [facility] [employer] [facility] 01/20/2025 11:26:35 Influenza, adjuvanted, quadrivalent, PF 1 completed MANDO Hutchins [address], [place], [address], [employer] [facility] 01/20/2025 11:26:35 Influenza, high-dose, trivalent, PF 9 completed MANDO Hutchins [address], [place], [address], [place] [facility] [employer] [facility] 01/20/2025 11:26:35 Influenza, split virus, trivalent, PF 5 completed MANDO Hutchins [address], [place], [address], [place] [facility] [employer] [facility] 01/20/2025 11:26:35 Influenza, split virus, quadrivalent, PF 6 completed MANDO Hutchins [address], [place], [address], [place] [facility] [employer] [facility] 01/20/2025 11:26:35 Influenza, MDCK, quadrivalent, PF 8 completed MANDO Hutchins [address], [place], [address], [place] [facility] [employer] [facility] 01/20/2025 11:26:35 Influenza, adjuvanted, quadrivalent, PF 2 completed MANDO Hutchins [address], [place], [address], [place] [facility] [employer] [facility] 01/20/2025 11:26:35 Influenza, split virus, quadrivalent, preservative 0 completed MANDO Hutchins [employer] [facility], [place], [address], [place] [facility] [employer] [facility] 01/20/2025 11:26:35 Influenza, split virus, quadrivalent, preservative 9 completed MANDO Hutchins [address], [place], [address], [place] [facility] [employer] [facility] 01/20/2025 11:26:35 Influenza, injectable,quadriva lent, preservative free, pediatric 7 completed MANDO Hutchins [address], [place], [address], [place] [facility] [employer] [facility] 01/20/2025 11:26:35 pneumococcal polysaccharide PPV23 0 completed Not Available [facility] 07/30/2022 09:31:49 Tdap 9 completed Not Available [facility] 07/30/2022 09:31:49 Pneumococcal conjugate PCV 13 9 completed Not Available [facility] 07/30/2022 09:31:49 Past Encounters Encounter ID Performer Location Encounter Start Date Encounter Closed Date Diagnosis/Indication Diagnosis SNOMED-CT Code Diagnosis ICD10 Code Diagnosis IMO Codes Diagnosis Note [id number] Virgilio Jansen MD [facility] [address] [address] 01/20/2025 10:44:45 01/20/2025 12:17:55 Hypothyroidism 26484759 E03.9 Well controlled , has been on the same dose for many years Chronic hyponatremia 503 16990 E87.1 Taking daily sodium chloride Osteoarthr itis of left hip joint 6529861317 47958 M16.12 scheduled for replacemen t 02/20/25 Hyperlipidemia 81684985 E78.5 Will check labs. Managed with atorvastat in and omega 3 Essential hypertension 88429587 I10 Elevated today, admits to white coat syndromeWi ll start monitoring at home Screening mammography 24 735261 Z12.31 58163592 Open wound of lesser toe of right foot 5891783660 6500209 S91.104A 69328673 Blister that rupture, third toe is red, warm, swollen Prediabetes 378005980 R7 3.03 120862 Last A1C 6.1 [id number] Giorgio Pizano DPM [facility] [address] [place] [address] 01/25/2025 11:04:40 01/26/2025 10:18:53 Prediabetes 012281834 R73.03 613626 continue diabetic control per PCP recommenda tions Ulcer of t oe of right foot 3850932212 8338715 L97.512 49922244 right 3rd toemupiroc in wet-to-dry dressings, daily j8reqbldzs ng at all timesfollo w-up one-week Hammer toe 106361219 M20 .41 98955556 discuss treatment optionsDis pensed toe crest padrecomme nd supportive shoe gear [id number] Giorgio Pizano DPM [facility] [address] [place] [address] 02/01/2025 14:59:42 02/01/2025 17:27:13 Prediabetes 573313989 R73.03 656283 continue diabetic control per PCP recommenda tions Ulcer of t oe of right foot 5790554354 5226147 L97.512 60600073 right 3rd toefinish Bactrim-- developed rashmupiro kannan wet-to-dry dressings, daily n2xmnhawsq ng at all timesfollo w-up one-week Hammer toe 737871199 M20 .41 56581133 discuss treatment optionsDis pensed toe crest pad-- Continue toe crest padsrecomm end supportive shoe gear [id number] Giorgio Pizano DPM [facility] [address] [place] [address] 02/08/2025 14:44:28 02/13/2025 09:34:44 Ulcer of toe of right foot 4824384185 6710856 L97.512 34581340 right 3rd toemupiroc in wet-to-dry dressings, daily r7ykzinrpy ng at all timesfollo w-up one-week Hammer toe 095794527 M20 .41 38216821 discuss treatment optionsDis pensed toe crest pad-- Continue toe crest padsrecomm end supportive shoe gear Prediabetes 756692389 R7 3.03 452179 continue diabetic control per PCP recommenda tions Health Concerns Section Related Observation LastModified by Organization Detai ls LastModified Time None Recorded Concern Status LastModified by Organization Details LastModified Time None Recorded Payers Encounter Date Sequence Insurance Name Policy Number Policy Lam Covered Member ID Lam Member ID Guarantor Name 02/08/2025 1 [place] Margaret Santos [id number] Margaret Santos 02/08/2025 2 [facility] (MEDICARE SUPPLEMENT) Margaret Santos [id number] Margaret Santos Notes Date Note Type Note Provider Name and Address Organization Details Recorded Time 02/08/2025 text/html ROS as noted in the HPI . Patient is a 69-year-old female who returns the office for follow-up on hammertoe with wound to the distal toe. Patient overall is doing well she is almost completely healed she has no acute signs of infection. Patient denies any other complaints and continues offloading with toe crest pad. Giorgio Pizano DPM [address] [facility], [facility] [address] [facility] [address], [place], [address], [place] [facility] 02/13/2025 09:24:02 OBGyn Episode No OBEpisode recorded.
--- NOTE | 2025-04-24 06:44 | WPDHPUPDATE1 ---
History and Physical Update Update Date/Time: 04/24/25 06:44 History and Physical has been reviewed, including an updated exam of the patient. There are NO changes in the patient's condition. Risks, benefits, and alternatives have been discussed and questions answered. Patient agrees to proceed with procedure.
[2025-04-24] MEDS: ACETAMINOPHEN 500 MG TABLET 1000 MG PO (06:55)
[2025-04-24] MEDS: LACTATED RINGERS 1,000 ML 30 ML IV CONT ×2 (06:55→10:11)
[2025-04-24] MEDS: VANCOMYCIN 1,250 MG/NS 250 ML 1,250 MG/250 ML BAG 166.67 MG IVPB (06:55)
[2025-04-24] MEDS: TRANEXAMIC ACID 1,000MG/ISO100 1,000 MG/100 ML BAG 200 MG IVPB (06:55)
[2025-04-24 07:48] LABS: Sodium 131 mmol/L (137-145)
--- NOTE | 2025-04-24 07:53 | WPDANESEPPF ---
Anes - Initial Pre Proc Eval Procedure: Operation Date: 04/24/25 07:30 Proposed Procedures p Left Total Hip Arthroplasty - Everardo Gallego MD Date/Time: 04/24/25 07:53 Surgeon: Everardo Gallego MD Pre Op Diagnosis: oa left hip Patient Data Age: 69 Gender: F Height: 1.57 m Weight: 84 kg Last Vital Signs Temp 97.4 F L 04/24/25 06:55 Pulse 72 04/24/25 06:55 Resp 16 04/24/25 06:55 BP 215/62 H 04/24/25 06:55 Pulse Ox 100 04/24/25 06:55 O2 Del Method Room Air 04/24/25 06:55 Allergies Allergy/AdvReac Type Severity Reaction Status Date / Time sodium Allergy RASH, Verified 04/24/25 07:08 DIZZINESS sulfamethoxazole AdvReac nausea, Verified 04/24/25 07:08 loss of appetite, upset stomach Home Medications ?Medication ?Instructions ?Recorded ?Confirmed ?Type atorvastatin 20 mg tablet 20 mg PO DAILY 12/31/23 04/24/25 History levothyroxine 50 mcg capsule 50 mcg PO DAILY 12/31/23 04/24/25 History aspirin 81 mg tablet,delayed 81 mg PO DAILY 02/09/25 04/24/25 History release (Adult Low Dose Aspirin) biotin 5,000 mcg disintegrating 5,000 mcg PO DAILY 02/09/25 04/24/25 History tablet calcium 600 mg (as 1 tablet PO DAILY 02/09/25 04/24/25 History carbonate)-vitamin D3 5 mcg (200 unit) tablet coQ10 (ubiquinol) 200 mg capsule 200 mg PO DAILY 02/09/25 04/24/25 History cranberry 500 mg capsule 500 mg PO DAILY 02/09/25 04/24/25 History elderberry fruit 200 mg capsule 400 mg PO DAILY 02/09/25 04/24/25 History fish,flax,primrose,borag 1 cap PO DAILY 02/09/25 04/24/25 History oils-om3,6,9 no5 400 mg-400 mg-200 mg capsule flaxseed 1,000 mg capsule 1,000 mg PO DAILY 02/09/25 04/24/25 History ibuprofen 200 mg tablet 600 mg PO Q6-8H PRN pain 02/09/25 04/24/25 History multivitamin (Daily Multi-Vitamin 1 tablet PO DAILY 02/09/25 04/24/25 History tablet) vit C-vit L-cahwsq-ogmjnbwm-omega 1 cap PO DAILY 02/09/25 04/24/25 History 3 100 mg-15 unit-2 mg-100 mg capsule losartan 100 mg tablet 100 mg PO QAM 04/10/25 04/24/25 History Laboratory Tests 04/24/25 07:34 Sodium 131 L mmol/L (137-145) Patient hx anesthesia problems: none Family hx anesthesia problems: none Results Review: All pre-operative results and documents have been reviewed as part of the pre-operative evaluation. [facility] Past Medical History Medical History Retina disorder, right Hyperlipemia Hypertension Surgical History Surgical History History of hip surgery Family History Family History Father Diabetes mellitus Mother Goiter Diabetes mellitus Sibling No problems noted. Social History Social History (Updated 01/03/25 @ 10:02 by Gardenia Shanks CMA) Smoking status: Never smoker Second hand tobacco smoke exposure: Yes Alcohol intake: current Substance use: never Substance use type: does not use Do You Feel Safe in your Home?: No Lack of Transportation: No Lack of Food: Never True Current Housing: I Have Housing Concerned About Future Housing: No Difficulty Paying Gas/Electric Bills: No Difficulty Paying for Meds: No Currently Unemployed: No Education: Associate Degree Difficulty w/ Childcare or Family Care: No Living arrangements: with family Additional living arrangements comments: [facility] Occupation/Education: retired 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 Gender identity (if verbalized by the patient): Female Spiritual care concerns: No Anes - Eval Final PreProcedure Day of Procedure 04/24/25 07:53 Patient weight: obese Heart: regular rate and rhythm Lungs: clear to auscultation Airway: Mallampati scale class II Neurological: alert and oriented Last oral intake: >/= 8 hours ASA classification: III Emergent: no Anesthetic plan: proceed Anesthesia type and monitoring: general ETT and standard monitoring Results Review: All pre-operative results and documents have been reviewed as part of the pre-operative evaluation. Informed Consent: The patient's anesthetic plan and its attendant risks and benefits were discussed with the patient/family/POA. Questions were solicited and answers provided to the satisfaction of the patient/family/POA.
[2025-04-24] MEDS: ceFAZolin 2 GM in SODIUM CHLORIDE 0.9% IV 50 ML 100 ML IVPB ×3 (07:59→23:30)
--- NOTE | 2025-04-24 10:01 | W.PM.PROC2 ---
Procedure Note - Detailed Date of Procedure 04/24/25 Pre-op Diagnosis Osteoarthritis left hip Post-op Diagnosis Same Procedure Performed LEFT Total Hip arthroplasty Surgeon Everardo Gallego MD Anesthesia General Indications Pain and Arthritis Description of Procedure Patient was brought to the operating room #7, and an anesthetic was administered. The patient was placed with the operative Hip up and sterilely prepped and draped in the usual manner. A longitudinal incision was performed. Dissection was carried down to the fascia. A Hardinge type approach was used and the femoral head was dislocated anteriorly. The Femoral head was removed a finger breath above the lesser trochanter. The acetabulum was serially reamed to accept a 54 component. Significant acetabular wear was noted it was hard to get a stable cup. This was impacted into place and secured with 2 25mm screws. A high wall liner was placed. The femur was reamed and broached to accept a 2 component which was impacted into place. A plus 3.5 head and neck were placed and the hip was put through full range of motion. The hip was noted to be stable. The wounds were then closed in a layered fashion using #5 ethibond, 2 vicryl, 2-0 vicryl and melanie. Patient left the operating room in satisfactory condition. Implants Daynel Z1 stem Danyel multi hole cup Estimated Blood Loss 600 Drains No Packing No Pathology None sent Complications No immediate complications Condition Stable Disposition PACU [facility] Billing Surgery - Charge Forward: Surgery Billing ([id number])
[2025-04-24] MEDS: fentaNYL CITRATE INJ (*CRX) 100 MCG/2 ML VIAL 25 MCG IV PUSH ×8 (10:14→10:42)
[2025-04-24] MEDS: HYDROmorphone HCL INJ (*CRX) 1 MG/ML SYR 0.5 MG IV PUSH ×2 (11:02→11:29)
--- NOTE | 2025-04-24 11:10 | SUR.PHASEI ---
Patient meets PACU discharge criteria, unit bed unavailable at this time. Patient placed in extended recovery status.
--- NOTE | 2025-04-24 12:31 | ADMGEN ---
This patient, Margaret Santos, was admitted to [facility] Surg Room 324-01. Patient/family oriented to hospital policies and general routines including ID bracelet, bed and alarms, visiting hours, pain management, procedures, bathroom and other care routines, personal items, smoking policy, room service/diet, and visiting hours. Information on how to activate the Rapid Response Team has been discussed. Patient/Family are encouraged to report perceived risks to care and to ask questions if they do not understand what they are told or what they should do.
--- NOTE | 2025-04-24 13:57 | PM.IMHP ---
H&P: HPI History of Present Illness Date/Time: 04/24/25 13:57 [facility] Past Medical History Medical History (Updated 04/24/25 @ 13:58 by Anabelle Bejarano APRN) Retina disorder, right Hyperlipemia Hypertension Surgical History Surgical History History of hip surgery Family History Family History Father Diabetes mellitus Mother Goiter Diabetes mellitus Sibling No problems noted. Social History Social History (Updated 01/03/25 @ 10:02 by Gardenia Shanks [facility]) Smoking status: Never smoker Second hand tobacco smoke exposure: Yes Alcohol intake: current Substance use: never Substance use type: does not use Do You Feel Safe in your Home?: No Lack of Transportation: No Lack of Food: Never True Current Housing: I Have Housing Concerned About Future Housing: No Difficulty Paying Gas/Electric Bills: No Difficulty Paying for Meds: No Currently Unemployed: No Education: Associate Degree Difficulty w/ Childcare or Family Care: No Living arrangements: with family Additional living arrangements comments: [email or web address] Occupation/Education: 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 Gender identity (if verbalized by the patient): Female Spiritual care concerns: No Meds Home Medications and Allergies Home Medications ?Medication ?Instructions ?Recorded ?Confirmed ?Type atorvastatin 20 mg tablet 20 mg PO DAILY 12/31/23 04/24/25 History levothyroxine 50 mcg capsule 50 mcg PO DAILY 12/31/23 04/24/25 History aspirin 81 mg tablet,delayed 81 mg PO DAILY 02/09/25 04/24/25 History release (Adult Low Dose Aspirin) biotin 5,000 mcg disintegrating 5,000 mcg PO DAILY 02/09/25 04/24/25 History tablet calcium 600 mg (as 1 tablet PO DAILY 02/09/25 04/24/25 History carbonate)-vitamin D3 5 mcg (200 unit) tablet coQ10 (ubiquinol) 200 mg capsule 200 mg PO DAILY 02/09/25 04/24/25 History cranberry 500 mg capsule 500 mg PO DAILY 02/09/25 04/24/25 History elderberry fruit 200 mg capsule 400 mg PO DAILY 02/09/25 04/24/25 History fish,flax,primrose,borag 1 cap PO DAILY 02/09/25 04/24/25 History oils-om3,6,9 no5 400 mg-400 mg-200 mg capsule flaxseed 1,000 mg capsule 1,000 mg PO DAILY 02/09/25 04/24/25 History ibuprofen 200 mg tablet 600 mg PO Q6-8H PRN pain 02/09/25 04/24/25 History multivitamin (Daily Multi-Vitamin 1 tablet PO DAILY 02/09/25 04/24/25 History tablet) vit C-vit E-tqkijp-szskhmcs-omega 1 cap PO DAILY 02/09/25 04/24/25 History 3 100 mg-15 unit-2 mg-100 mg capsule losartan 100 mg tablet 100 mg PO QAM 04/10/25 04/24/25 History Allergies Allergy/AdvReac Type Severity Reaction Status Date / Time sodium Allergy RASH, Verified 04/24/25 12:33 DIZZINESS sulfamethoxazole AdvReac nausea, Verified 04/24/25 12:33 loss of appetite, upset stomach Vital Signs Vital Signs - 24 hr 04/24/25 06:55 04/24/25 10:11 04/24/25 10:25 Temperature 97.4 F L 97.8 F Pulse Rate 72 88 84 Respiratory Rate 16 16 14 Blood Pressure 215/62 H 157/56 H 141/55 H Pulse Oximetry 100 96 100 Oxygen Delivery Room Air Simple Face Mask Simple Face Mask Oxygen Flow Rate 8 8 04/24/25 10:34 04/24/25 10:40 04/24/25 10:55 Temperature Pulse Rate 88 82 Respiratory Rate 18 12 Blood Pressure 141/55 H 128/54 L Pulse Oximetry 99 98 Oxygen Delivery Room Air Room Air Room Air Oxygen Flow Rate 04/24/25 11:10 04/24/25 11:40 04/24/25 11:56 Temperature Pulse Rate 85 90 86 Respiratory Rate 14 14 16 Blood Pressure 131/53 L 131/53 L 132/57 L Pulse Oximetry 95 93 96 Oxygen Delivery Room Air Room Air Room Air Oxygen Flow Rate 04/24/25 11:57 04/24/25 12:12 04/24/25 12:51 Temperature 96.7 F L 96.8 F L Pulse Rate 86 93 93 Respiratory Rate 13 13 13 Blood Pressure 153/62 H 131/65 Pulse Oximetry 99 99 99 Oxygen Delivery Room Air Oxygen Flow Rate H&P: Results Labs Labs: [facility] 04/24/25 07:34 Sodium 131 L Assessment and Plan Assessment and plan (1) Osteoarthritis of left hip: Qualifiers: Osteoarthritis type: primary Qualified Code(s): M16.12 - Unilateral primary osteoarthritis, left hip Code(s): M16.12 - Unilateral primary osteoarthritis, left hip Status: Acute (2) Hypertension: Qualifiers: Hypertension type: primary hypertension Qualified Code(s): I10 - Essential (primary) hypertension Code(s): I10 - Essential (primary) hypertension Status: Acute (3) Hyperlipemia: Qualifiers: Hyperlipidemia type: unspecified Qualified Code(s): E78.5 - Hyperlipidemia, unspecified Code(s): E78.5 - Hyperlipidemia, unspecified Status: Acute Plan Diet: Regular GI prophylaxis: NA DVT prophylaxis: SCDs, Xarelto lines/drains: PIV Fluids: NS at 125 started on 04/24 Code status: Full Quality VTE Prophylaxis VTE prophylaxis: mechanical ordered and pharmacologic ordered Hospitalist MIPS Advance Care Plan I have confirmed that the patient's Advanced Care Plan is present, code status is documented, or surrogate decision maker is listed in patient medical record.: Yes Medication Reconciliation I have utilized all available resources to obtain, update and review the patients current medications (includes all prescriptions, OTC, herbals, cannabis, and nutritional supplements).: Yes
[2025-04-24] MEDS: SENNA/DOCUSATE SODIUM TABLET 2 TAB PO (16:58)
[2025-04-24] MEDS: RIVAROXABAN 10 MG TABLET PO (16:58)
[2025-04-24] MEDS: LOSARTAN POTASSIUM 100 MG TABLET PO (18:06)
--- NOTE | 2025-04-24 21:24 | PM.IMCN ---
Assessment and Plan Assessment and plan (1) Osteoarthritis of left hip: Qualifiers: Osteoarthritis type: primary Qualified Code(s): M16.12 - Unilateral primary osteoarthritis, left hip Code(s): M16.12 - Unilateral primary osteoarthritis, left hip Status: Acute Assessment and Plan: Underwent left total hip arthroplasty on 04/24/2025 due to documented [id number] osteoarthritis. Patient has had no complaints of postop nausea and currently rates her pain at a 0. Per bedside RN, surgical dressing required changing earlier due to drainage shadow. -PT/OT evaluation -pain control with Celebrex, tramadol, hydrocodone. IV ibuprofen and hydromorphone in the event patient is NPO -Zofran p.r.n. -toe-touch weight-bearing -plan for DC on 04/25 (2) Hyperlipemia: Qualifiers: Hyperlipidemia type: unspecified Qualified Code(s): E78.5 - Hyperlipidemia, unspecified Code(s): E78.5 - Hyperlipidemia, unspecified Status: Chronic Assessment and Plan: Continue atorvastatin (3) Hypertension: Qualifiers: Hypertension type: primary hypertension Qualified Code(s): I10 - Essential (primary) hypertension Code(s): I10 - Essential (primary) hypertension Status: Chronic Assessment and Plan: Continue Cozaar Plan Diet: Regular GI prophylaxis: NA DVT prophylaxis: SCDs, Xarelto lines/drains: PIV Fluids: Intraoperative Code status: Full HPI Date of Consult Consult date: 04/24/25 Requesting Physician: Everardo Gallego MD Primary Care Provider: Tiffanie Rehman, NAIL SETTER Consult Narrative Reason for consult: Medical management Narrative: 69-year-old female with a past medical history of hyperlipidemia, hypertension, hypothyroidism presents today for a scheduled left hip total arthroplasty. Patient has had pain to the left hip localized to the groin and buttock area for years, but the pain progressed over this past summer. Her pain is worse with activity and relieved somewhat by rest. It is now started impacting her walking and activities of daily living, resulting in her wishing to pursue the total left hip replacement. Patient previously had a total right hip replacement and has done well postop. Workup in the preop period noted positive Stinchfield test in pain with any manipulation. Grinding and crepitus with motion is present. Left hip and pelvis x-ray demonstrate [id number] change with the degenerative collapse. Patient underwent total left hip arthroplasty on 04/24/2025. Review of Systems Review of Systems: All systems reviewed & are unremarkable except as noted in HPI and below PMFSH Past Medical History Medical History (Updated 04/24/25 @ 21:27 by Anabelle Bejarano APRN) Retina disorder, right Hyperlipemia Hypertension Surgical History Surgical History History of hip surgery Family History Family History Father Diabetes mellitus Mother Goiter Diabetes mellitus Sibling No problems noted. Social History Social History (Updated 01/03/25 @ 10:02 by Gardenia Shanks [facility]) Smoking status: Never smoker Second hand tobacco smoke exposure: Yes Alcohol intake: current Substance use: never Substance use type: does not use Do You Feel Safe in your Home?: No Lack of Transportation: No Lack of Food: Never True Current Housing: I Have Housing Concerned About Future Housing: No Difficulty Paying Gas/Electric Bills: No Difficulty Paying for Meds: No Currently Unemployed: No Education: Associate Degree Difficulty w/ Childcare or Family Care: No Living arrangements: with family Additional living arrangements comments: [facility] Occupation/Education: 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 Gender identity (if verbalized by the patient): Female Spiritual care concerns: No Meds Home Medications and Allergies Home Medications ?Medication ?Instructions ?Recorded ?Confirmed ?Type atorvastatin 20 mg tablet 20 mg PO DAILY 12/31/23 04/24/25 History levothyroxine 50 mcg capsule 50 mcg PO DAILY 12/31/23 04/24/25 History aspirin 81 mg tablet,delayed 81 mg PO DAILY 02/09/25 04/24/25 History release (Adult Low Dose Aspirin) biotin 5,000 mcg disintegrating 5,000 mcg PO DAILY 02/09/25 04/24/25 History tablet calcium 600 mg (as 1 tablet PO DAILY 02/09/25 04/24/25 History carbonate)-vitamin D3 5 mcg (200 unit) tablet coQ10 (ubiquinol) 200 mg capsule 200 mg PO DAILY 02/09/25 04/24/25 History cranberry 500 mg capsule 500 mg PO DAILY 02/09/25 04/24/25 History elderberry fruit 200 mg capsule 400 mg PO DAILY 02/09/25 04/24/25 History fish,flax,primrose,borag 1 cap PO DAILY 02/09/25 04/24/25 History oils-om3,6,9 no5 400 mg-400 mg-200 mg capsule flaxseed 1,000 mg capsule 1,000 mg PO DAILY 02/09/25 04/24/25 History ibuprofen 200 mg tablet 600 mg PO Q6-8H PRN pain 02/09/25 04/24/25 History multivitamin (Daily Multi-Vitamin 1 tablet PO DAILY 02/09/25 04/24/25 History tablet) vit C-vit H-mgsine-yyqpgnpj-omega 1 cap PO DAILY 02/09/25 04/24/25 History 3 100 mg-15 unit-2 mg-100 mg capsule losartan 100 mg tablet 100 mg PO QAM 04/10/25 04/24/25 History Allergies Allergy/AdvReac Type Severity Reaction Status Date / Time sodium Allergy RASH, Verified 04/24/25 12:33 DIZZINESS sulfamethoxazole AdvReac nausea, Verified 04/24/25 12:33 loss of appetite, upset stomach Vital Signs Vital Signs - 24 hr 04/24/25 06:55 04/24/25 10:11 04/24/25 10:25 Temperature 97.4 F L 97.8 F Pulse Rate 72 88 84 Respiratory Rate 16 16 14 Blood Pressure 215/62 H 157/56 H 141/55 H Pulse Oximetry 100 96 100 Oxygen Delivery Room Air Simple Face Mask Simple Face Mask Oxygen Flow Rate 8 8 04/24/25 10:34 04/24/25 10:40 04/24/25 10:55 Temperature Pulse Rate 88 82 Respiratory Rate 18 12 Blood Pressure 141/55 H 128/54 L Pulse Oximetry 99 98 Oxygen Delivery Room Air Room Air Room Air Oxygen Flow Rate 04/24/25 11:10 04/24/25 11:40 04/24/25 11:56 Temperature Pulse Rate 85 90 86 Respiratory Rate 14 14 16 Blood Pressure 131/53 L 131/53 L 132/57 L Pulse Oximetry 95 93 96 Oxygen Delivery Room Air Room Air Room Air Oxygen Flow Rate 04/24/25 11:57 04/24/25 12:12 04/24/25 12:51 Temperature 96.7 F L 96.8 F L Pulse Rate 86 93 93 Respiratory Rate 13 13 13 Blood Pressure 153/62 H 131/65 Pulse Oximetry 99 99 99 Oxygen Delivery Room Air Oxygen Flow Rate 04/24/25 13:08 04/24/25 13:42 04/24/25 13:55 Temperature 97 F L Pulse Rate 85 Respiratory Rate 13 Blood Pressure 110/50 L Pulse Oximetry 95 Oxygen Delivery Room Air Room Air Oxygen Flow Rate 04/24/25 14:35 04/24/25 17:11 04/24/25 20:25 Temperature 96.6 F L Pulse Rate 98 80 Respiratory Rate 20 14 Blood Pressure 141/49 H Pulse Oximetry 97 100 Oxygen Delivery Room Air Room Air Oxygen Flow Rate Exam Narrative: GENERAL: non-toxic appearing, in no acute distress. HEAD: Normocephalic, atraumatic. EYES: PERRLA. Conjunctivae clear. NOSE: Normal no drainage. THROAT: Pharynx clear, no exudate. NECK: Trachea midline. No adenopathy, no masses. RESPIRATORY: Airway patent, respirations nonlabored. CTA. CARDIOVASCULAR: Regular rate and rhythm BREASTS: Defer GASTROINTESTINAL: Abdomen is soft and nontender. No organomegaly. Bowel sounds normal in all quadrants. GENITOURINARY: Defer MUSCULOSKELETAL: Moves all extremities. No gross deformities. Postop dressing to left hip. Mildly tender with palpation. Ice pack in place SKIN: Warm, dry, normal color. Dressing covering recent left hip surgical incision NEURO: A&O X4. Speech clear PSYCHIATRIC: Normal interaction Results Labs 04/24/25 07:34 Labs: BMP 04/24/25 07:34 Sodium 131 L Quality VTE Prophylaxis VTE prophylaxis: mechanical ordered and pharmacologic ordered Hospitalist [facility] Advance Care Plan I have confirmed that the patient's Advanced Care Plan is present, code status is documented, or surrogate decision maker is listed in patient medical record.: Yes Medication Reconciliation I have utilized all available resources to obtain, update and review the patients current medications (includes all prescriptions, OTC, herbals, cannabis, and nutritional supplements).: Yes
[2025-04-25] MEDS: HYDROcodone/acetaminophen (*CRX) 5-325 MG TABLET 1 TAB PO ×2 (00:10→08:34)
[2025-04-25 01:18] VITALS: BP 132/61; PULSE 84; RESP 20; TEMP 36.5; O2SAT 96
[2025-04-25 04:30] VITALS: BP 146/48; PULSE 76; RESP 20; TEMP 36.4; O2SAT 99
[2025-04-25] MEDS: LEVOTHYROXINE SODIUM 50 MCG TABLET PO (05:33)
[2025-04-25 06:20] LABS: Hematocrit 29.2 % (37.0-47.0); Hemoglobin 9.7 g/dL (12.0-15.0); Immature Granulocyte Percent A 0.5 % (0-0.5); Lymphocytes Absolute Auto 1.64 K/mm3 (0.9-3.2); Mean Corpuscular HGB Conc 33.2 g/dl (32-36); Mean Corpuscular Hemoglobin 30.7 pg (26-34); Mean Corpuscular Volume 92.4 fl (80-100); Nucleated Red Blood Cells Absolute Auto 0.000 K/mm3 (0.0-0.012); Nucleated Red Blood Cells Perc 0.0 % (0.0-0.2); Platelet Count Result 342 k/mm3 (150-375); Red Blood Count 3.16 M/mm3 (4.2-5.4); White Blood Count 14.3 K/mm3 (4.5-10.0)
[2025-04-25 06:37] LABS: Anion Gap 7 mmol/L (4-12); Blood Urea Nitrogen 15 mg/dL (7-17); Calcium 8.8 mg/dL (8.4-10.2); Carbon Dioxide 21 mmol/L (22-30); Chloride 99 mmol/L (98-107); Estimated CRCL calculation 60 ml/min; Estimated Glomerular Filt Rate > 60; Glucose 125 mg/dL (65-110); Potassium 4.2 mmol/L (3.4-5.0); Sodium 127 mmol/L (137-145)
--- NOTE | 2025-04-25 06:51 | P.PNOP_ITS ---
Progress Note: A&P Assessment and Plan (1) History of total left hip replacement: Code(s): Z96.642 - Presence of left artificial hip joint Status: Acute Assessment and Plan: Patient is status post total hip arthroplasty for left hip arthritis. She is doing well and can be dismissed at this time. Anticipate follow-up in 2 weeks. If she has any changes or problems she will call. Dismissal medications [place] doxycycline and Xarelto. Subjective Subjective Date/Time Seen: 04/25/25 06:51 Post Op day: 1 Principal diagnosis: Left Total Hip Review of Systems Musculoskeletal: Musculoskeletal: Reports arthralgias, Reports joint swelling and Reports stiffness Neurologic: Reports abnormal gait Exam Narrative: Patient is awake and alert. She is wiggling her toes. Dressing is dry and intact. Able ambulate with a walker. Objective Data Vital Signs Vital Signs: Vital Signs - 24 hr 04/24/25 06:55 04/24/25 10:11 04/24/25 10:25 Temperature 97.4 F L 97.8 F Pulse Rate 72 88 84 Respiratory Rate 16 16 14 Blood Pressure 215/62 H 157/56 H 141/55 H Pulse Oximetry 100 96 100 Oxygen Delivery Room Air Simple Face Mask Simple Face Mask Oxygen Flow Rate 8 8 04/24/25 10:34 04/24/25 10:40 04/24/25 10:55 Temperature Pulse Rate 88 82 Respiratory Rate 18 12 Blood Pressure 141/55 H 128/54 L Pulse Oximetry 99 98 Oxygen Delivery Room Air Room Air Room Air Oxygen Flow Rate 04/24/25 11:10 04/24/25 11:40 04/24/25 11:56 Temperature Pulse Rate 85 90 86 Respiratory Rate 14 14 16 Blood Pressure 131/53 L 131/53 L 132/57 L Pulse Oximetry 95 93 96 Oxygen Delivery Room Air Room Air Room Air Oxygen Flow Rate 04/24/25 11:57 04/24/25 12:12 04/24/25 12:51 Temperature 96.7 F L 96.8 F L Pulse Rate 86 93 93 Respiratory Rate 13 13 13 Blood Pressure 153/62 H 131/65 Pulse Oximetry 99 99 99 Oxygen Delivery Room Air Oxygen Flow Rate 04/24/25 13:08 04/24/25 13:42 04/24/25 13:55 Temperature 97 F L Pulse Rate 85 Respiratory Rate 13 Blood Pressure 110/50 L Pulse Oximetry 95 Oxygen Delivery Room Air Room Air Oxygen Flow Rate 04/24/25 14:35 04/24/25 17:11 04/24/25 20:25 Temperature 96.6 F L Pulse Rate 98 80 Respiratory Rate 20 14 Blood Pressure 141/49 H Pulse Oximetry 97 100 Oxygen Delivery Room Air Room Air Oxygen Flow Rate 04/24/25 20:25 04/25/25 01:18 04/25/25 04:30 Temperature 96.9 F L 97.7 F 97.6 F Pulse Rate 85 84 76 Respiratory Rate 20 20 20 Blood Pressure 167/64 H 132/61 146/48 H Pulse Oximetry 99 96 99 Oxygen Delivery Oxygen Flow Rate Intake/Output Intake/Output: Intake & Output 04/22/25 04/23/25 04/24/25 04/25/25 23:59 23:59 23:59 23:59 Intake Total 940 350 Balance 940 350 Meds/Results Medications: Active Medications Generic Name Dose Route Start Last Admin Trade Name Freq PRN Reason Stop Dose Admin Hydrocodone Bitart/Acetaminophen 1 tab 04/24/25 11:57 04/25/25 00:10 Hydrocodone/Acetaminophen (*Crx) 5-325 Mg Tablet PO 1 tab Q4H PRN Administration Pain Rated 4-6 Hydrocodone Bitart/Acetaminophen 1 tab 04/24/25 11:57 Hydrocodone/Acetaminophen (*Crx) 7.5-325 Mg Tablet PO Q4H PRN Pain Rated 7-10 Aspirin 81 mg 04/25/25 09:00 Aspirin 81 Mg Enteric Tablet PO DAILY [facility] Atorvastatin Calcium 20 mg 04/25/25 09:00 Atorvastatin 20 Mg Tablet PO DAILY [facility] Celecoxib 200 mg 04/25/25 09:00 Celecoxib 200 Mg Capsule PO DAILY [facility] Hydromorphone HCl 1 mg 04/24/25 11:57 Hydromorphone Hcl Inj (*Crx) 1 Mg/Ml Syr IV PUSH Q2H PRN Breakthrough Pain Rated 7-10 or NPO Hydromorphone HCl 0.5 mg 04/24/25 11:57 Hydromorphone Hcl Inj (*Crx) 1 Mg/Ml Syr IV PUSH Q2H PRN Breakthrough Pain Rated 4-6 or NPO Cefazolin Sodium 2 gm/ Sodium 50 mls @ 100 mls/hr 04/24/25 16:00 04/25/25 00:00 Chloride IVPB 04/25/25 08:29 Infused Q8H [facility] Infusion Ibuprofen 800 mg in 200 mls @ 400 mls/hr 04/24/25 11:57 Caldolor 800 Mg/200 Ml IVPB Q6H PRN Breakthrough Pain Rated 1-3 or NPO Levothyroxine Sodium 50 mcg 04/25/25 06:30 04/25/25 05:33 Levothyroxine Sodium 50 Mcg Tablet PO 50 mcg DAILY@0630 [facility] Administration Losartan Potassium 100 mg 04/24/25 14:00 04/24/25 18:06 Losartan Potassium 100 Mg Tablet PO 100 mg QAM [facility] Administration Multivitamins Therapeutic 1 tablet 04/25/25 09:00 Multivitamins Therapeutic Tab (*Bkc) PO DAILY [facility] Naloxone HCl 0.1 mg 04/24/25 11:57 Naloxone Hcl 0.4 Mg/Ml Vial IV PUSH Q2M PRN Opiate Reversal Ondansetron HCl 4 mg 04/24/25 11:57 Ondansetron Inj 4 Mg/2 Ml Vial IV PUSH Q4H PRN Nausea And Vomiting Polyethylene Glycol 17 gm 04/25/25 09:00 Polyethylene Glycol 3350 17 Gm Powd.Pack PO QAM [facility] Rivaroxaban 10 mg 04/24/25 17:00 04/24/25 16:58 Rivaroxaban 10 Mg Tablet PO 10 mg DAILY@1700 [facility] Administration Senna/Docusate Sodium 2 tab 04/24/25 17:00 04/24/25 16:58 Senna/Docusate Sodium Tablet PO 2 tab BID [facility] Administration Tramadol HCl 50 mg 04/24/25 11:57 Tramadol Hcl (*Crx) 50 Mg Tablet PO Q4H PRN Pain Rated 1-3 Radiology Results: ITS Impressions Intraoperative X-Ray 04/24/25 13:54 IMPRESSION: 1. Expected appearance during left total hip arthroplasty. Labs Labs: Laboratory Results - last 24 hr 04/24/25 04/25/25 07:34 05:41 WBC 14.3 H RBC 3.16 L Hgb 9.7 L D Hct 29.2 L MCV 92.4 MCH 30.7 MCHC 33.2 RDW 12.7 Plt Count 342 MPV 10.1 Immature Gran % (Auto) 0.5 Neut % (Auto) 75.8 H Lymph % (Auto) 11.5 L [place] % (Auto) 11.9 H Eos % (Auto) 0.0 Baso % (Auto) 0.3 Lymph # (Auto) 1.64 [place] # (Auto) 1.7 H Eos # (Auto) 0.0 Baso # (Auto) 0.0 Abs Immat Gran (auto) 0.07 H Absolute Neuts (auto) 10.9 H Absolute Nucleated RBC 0.000 Nucleated RBC % 0.0 Sodium 131 L 127 L Potassium 4.2 Chloride 99 Carbon Dioxide 21 L Anion Gap 7 BUN 15 D Creatinine 0.75 Estim Creat Clear Calc 60 Estimated GFR > 60 Glucose 125 H Calcium 8.8
[2025-04-25] MEDS: ceFAZolin 2 GM in SODIUM CHLORIDE 0.9% IV 50 ML 100 ML IVPB (09:20)
[2025-04-25] MEDS: SENNA/DOCUSATE SODIUM TABLET 2 TAB PO (09:22)
[2025-04-25] MEDS: ATORVASTATIN 20 MG TABLET PO (09:22)
[2025-04-25] MEDS: CELECOXIB 200 MG CAPSULE PO (09:22)
[2025-04-25] MEDS: LOSARTAN POTASSIUM 100 MG TABLET PO (09:23)
[2025-04-25] MEDS: ASPIRIN 81 MG ENTERIC TABLET PO (09:23)
[2025-04-25] MEDS: MULTIVITAMINS THERAPEUTIC TAB (*BKC) 1 TABLET PO (09:23)
[2025-04-25 09:42] VITALS: BP 93/56; PULSE 94; RESP 16; TEMP 36.3; O2SAT 99
--- NOTE | 2025-04-25 09:45 | PM.IMPN ---
Progress Note: A&P Assessment and Plan (1) Osteoarthritis of left hip: Qualifiers: Osteoarthritis type: primary Qualified Code(s): M16.12 - Unilateral primary osteoarthritis, left hip Code(s): M16.12 - Unilateral primary osteoarthritis, left hip Status: Acute Assessment and Plan: Underwent left total hip arthroplasty on 04/24/2025 due to documented [id number] osteoarthritis. Patient has had no complaints of postop nausea and currently rates her pain at a 0. Per bedside RN, surgical dressing required changing earlier due to drainage shadow. -PT/OT evaluation -pain control with Celebrex, tramadol, hydrocodone. IV ibuprofen and hydromorphone in the event patient is NPO -Zofran p.r.n. -toe-touch weight-bearing -plan for DC on 04/25 (2) Hyperlipemia: Qualifiers: Hyperlipidemia type: unspecified Qualified Code(s): E78.5 - Hyperlipidemia, unspecified Code(s): E78.5 - Hyperlipidemia, unspecified Status: Chronic Assessment and Plan: Continue atorvastatin (3) Hypertension: Qualifiers: Hypertension type: primary hypertension Qualified Code(s): I10 - Essential (primary) hypertension Code(s): I10 - Essential (primary) hypertension Status: Chronic Assessment and Plan: Continue Cozaar Plan Diet: Regular GI prophylaxis: NA DVT prophylaxis: SCDs, Xarelto lines/drains: PIV Fluids: Intraoperative Code status: Full Subjective Date/time seen: 04/25/25 09:45 Interval history: 69-year-old female with a past medical history of hyperlipidemia, hypertension, hypothyroidism presents today for a scheduled left hip total arthroplasty, hospitalist team consulted for medical management. Leukocytosis and hemoglobin dropped to 9.7 could be due to recent surgery Review of Systems Review of Systems: All systems reviewed & are unremarkable except as noted in HPI and below Exam Narrative: GENERAL: non-toxic appearing, in no acute distress. HEAD: Normocephalic, atraumatic. EYES: PERRLA. Conjunctivae clear. NOSE: Normal no drainage. THROAT: Pharynx clear, no exudate. NECK: Trachea midline. No adenopathy, no masses. RESPIRATORY: Airway patent, respirations nonlabored. CTA. CARDIOVASCULAR: Regular rate and rhythm BREASTS: Defer GASTROINTESTINAL: Abdomen is soft and nontender. No organomegaly. Bowel sounds normal in all quadrants. GENITOURINARY: Defer MUSCULOSKELETAL: Moves all extremities. No gross deformities. Postop dressing to left hip. Mildly tender with palpation. Ice pack in place SKIN: Warm, dry, normal color. Dressing covering recent left hip surgical incision NEURO: A&O X4. Speech clear PSYCHIATRIC: Normal interaction Objective Data Vital Signs Vital Signs: Vital Signs - 24 hr 04/24/25 10:11 04/24/25 10:25 04/24/25 10:34 Temperature 97.8 F Pulse Rate 88 84 Respiratory Rate 16 14 Blood Pressure 157/56 H 141/55 H Pulse Oximetry 96 100 Oxygen Delivery Simple Face Mask Simple Face Mask Room Air Oxygen Flow Rate 8 8 04/24/25 10:40 04/24/25 10:55 04/24/25 11:10 Temperature Pulse Rate 88 82 85 Respiratory Rate 18 12 14 Blood Pressure 141/55 H 128/54 L 131/53 L Pulse Oximetry 99 98 95 Oxygen Delivery Room Air Room Air Room Air Oxygen Flow Rate 04/24/25 11:40 04/24/25 11:56 04/24/25 11:57 Temperature 96.7 F L Pulse Rate 90 86 86 Respiratory Rate 14 16 13 Blood Pressure 131/53 L 132/57 L 153/62 H Pulse Oximetry 93 96 99 Oxygen Delivery Room Air Room Air Oxygen Flow Rate 04/24/25 12:12 04/24/25 12:51 04/24/25 13:08 Temperature 96.8 F L Pulse Rate 93 93 Respiratory Rate 13 13 Blood Pressure 131/65 Pulse Oximetry 99 99 Oxygen Delivery Room Air Room Air Oxygen Flow Rate 04/24/25 13:42 04/24/25 13:55 04/24/25 14:35 Temperature 97 F L Pulse Rate 85 98 Respiratory Rate 13 20 Blood Pressure 110/50 L Pulse Oximetry 95 97 Oxygen Delivery Room Air Room Air Oxygen Flow Rate 04/24/25 17:11 04/24/25 20:25 04/24/25 20:25 Temperature 96.6 F L 96.9 F L Pulse Rate 80 85 Respiratory Rate 14 20 Blood Pressure 141/49 H 167/64 H Pulse Oximetry 100 99 Oxygen Delivery Room Air Oxygen Flow Rate 04/25/25 01:18 04/25/25 04:30 Temperature 97.7 F 97.6 F Pulse Rate 84 76 Respiratory Rate 20 20 Blood Pressure 132/61 146/48 H Pulse Oximetry 96 99 Oxygen Delivery Oxygen Flow Rate Intake/Output Intake/Output: Intake & Output 04/22/25 04/23/25 04/24/25 04/25/25 23:59 23:59 23:59 23:59 Intake Total 940 590 Balance 940 590 Meds/Results Medications: Active Medications Generic Name Dose Route Start Last Admin Trade Name Freq PRN Reason Stop Dose Admin Hydrocodone Bitart/Acetaminophen 1 tab 04/24/25 11:57 04/25/25 08:34 Hydrocodone/Acetaminophen (*Crx) 5-325 Mg Tablet PO 1 tab Q4H PRN Administration Pain Rated 4-6 Hydrocodone Bitart/Acetaminophen 1 tab 04/24/25 11:57 Hydrocodone/Acetaminophen (*Crx) 7.5-325 Mg Tablet PO Q4H PRN Pain Rated 7-10 Aspirin 81 mg 04/25/25 09:00 04/25/25 09:23 Aspirin 81 Mg Enteric Tablet PO 81 mg DAILY [facility]SC[facility] Administration Atorvastatin Calcium 20 mg 04/25/25 09:00 04/25/25 09:22 Atorvastatin 20 Mg Tablet PO 20 mg DAILY OSCAR Administration Celecoxib 200 mg 04/25/25 09:00 04/25/25 09:22 Celecoxib 200 Mg Capsule PO 200 mg DAILY OSCAR Administration Hydromorphone HCl 1 mg 04/24/25 11:57 Hydromorphone Hcl Inj (*Crx) 1 Mg/Ml Syr IV PUSH Q2H PRN Breakthrough Pain Rated 7-10 or NPO Hydromorphone HCl 0.5 mg 04/24/25 11:57 Hydromorphone Hcl Inj (*Crx) 1 Mg/Ml Syr IV PUSH Q2H PRN Breakthrough Pain Rated 4-6 or NPO Ibuprofen 800 mg in 200 mls @ 400 mls/hr 04/24/25 11:57 Caldolor 800 Mg/200 Ml IVPB Q6H PRN Breakthrough Pain Rated 1-3 or NPO Levothyroxine Sodium 50 mcg 04/25/25 06:30 04/25/25 05:33 Levothyroxine Sodium 50 Mcg Tablet PO 50 mcg DAILY@0630 [facility] Administration Losartan Potassium 100 mg 04/24/25 14:00 04/25/25 09:23 Losartan Potassium 100 Mg Tablet PO 100 mg QAM [facility]SCAR Administration Multivitamins Therapeutic 1 tablet 04/25/25 09:00 04/25/25 09:23 Multivitamins Therapeutic Tab (*Bkc) PO 1 tablet DAILY [facility]SC[facility] Administration Naloxone HCl 0.1 mg 04/24/25 11:57 Naloxone Hcl 0.4 Mg/Ml Vial IV PUSH Q2M PRN Opiate Reversal Ondansetron HCl 4 mg 04/24/25 11:57 Ondansetron Inj 4 Mg/2 Ml Vial IV PUSH Q4H PRN Nausea And Vomiting Polyethylene Glycol 17 gm 04/25/25 09:00 04/25/25 09:23 Polyethylene Glycol 3350 17 Gm Powd.Pack PO 17 gm QAM OSCAR Administration Rivaroxaban 10 mg 04/24/25 17:00 04/24/25 16:58 Rivaroxaban 10 Mg Tablet PO 10 mg DAILY@1700 [facility] Administration Senna/Docusate Sodium 2 tab 04/24/25 17:00 04/25/25 09:22 Senna/Docusate Sodium Tablet PO 2 tab BID [facility] Administration Tramadol HCl 50 mg 04/24/25 11:57 Tramadol Hcl (*Crx) 50 Mg Tablet PO Q4H PRN Pain Rated 1-3 Wound Care/Dressing Products 1 each 04/25/25 09:00 Calcium-Sodium Alginate Bandage TOPICAL DAILY [facility] Radiology Results: ITS Impressions Intraoperative X-Ray 04/24/25 13:54 IMPRESSION: 1. Expected appearance during left total hip arthroplasty. Labs Labs: Laboratory Results - last 24 hr 04/25/25 05:41 WBC 14.3 H RBC 3.16 L Hgb 9.7 L D Hct 29.2 L MCV 92.4 MCH 30.7 MCHC 33.2 RDW 12.7 Plt Count 342 MPV 10.1 Immature Gran % (Auto) 0.5 Neut % (Auto) 75.8 H Lymph % (Auto) 11.5 L [place] % (Auto) 11.9 H Eos % (Auto) 0.0 Baso % (Auto) 0.3 Lymph # (Auto) 1.64 [place] # (Auto) 1.7 H Eos # (Auto) 0.0 Baso # (Auto) 0.0 Abs Immat Gran (auto) 0.07 H Absolute Neuts (auto) 10.9 H Absolute Nucleated RBC 0.000 Nucleated RBC % 0.0 Sodium 127 L Potassium 4.2 Chloride 99 Carbon Dioxide 21 L Anion Gap 7 BUN 15 D Creatinine 0.75 Estim Creat Clear Calc 60 Estimated GFR > 60 Glucose 125 H Calcium 8.8 Quality VTE Prophylaxis VTE prophylaxis: mechanical ordered and pharmacologic ordered
== END 2025-04-25 11:40 | disposition home or self-care (01) ==
LOC: ANHSURGERY 05:55 → ANH3MEDSUR 12:02
PROVIDERS: Anesthesiology; Visit Provider Orthopaedic Surgery
PROC: (CPT 27130; principal; 2025-04-24 07:30)
DX: M16.12 Unilateral primary osteoarthritis, left hip (principal); E78.5 Hyperlipidemia, unspecified; I10 Essential (primary) hypertension; H35.89 Other specified retinal disorders; E66.9 Obesity, unspecified; Z68.34 Body mass index [BMI] 34.0-34.9, adult; Z79.82 Long term (current) use of aspirin; Z79.1 Long term (current) use of non-steroidal anti-inflammatories (NSAID); Z98.890 Other specified postprocedural states; Z96.641 Presence of right artificial hip joint
CPT/HCPCS: 27130; 36415; 80048; 84295; 85025; 97110; 97161; 97166; 97530; 97535; 99199; J0690; A9270; C1776; J0360; J1100; J1171; J2003; J2405; J2704; J3010; J3290; J3373; J7120